=== PATIENT | female | born 1965 | race Caucasian/White ===

== ENCOUNTER 2016-10-01 05:02 | Inpatient (IN) | payer OTHER ==
[~2016-10-01] VITALS: Ht 162.6 cm; Wt 73.0 kg
[~2016-10-01 05:02] MED LIST: HYDR-3498 PO; VITAMIN B
[2016-10-01 05:23] VITALS: Ht 162.6 cm; Wt 73.0 kg
[2016-10-01] MEDS ORDERED: SOD CHLORIDE 0.9% 1,000 ML IV STA (07:02)
[2016-10-01] MEDS ORDERED: DIPHENHYDRAMINE 50 MG INJ IV ONE (07:30)
[2016-10-01 07:45] VITALS: TEMP 98.8
--- NOTE | 2016-10-01 08:13 | RADRPT ---
PROCEDURE: CT Abdomen and pelvis without contrast. CLINICAL INDICATION: Abdominal pain. TECHNIQUE: CT scan of the abdomen and pelvis was performed on a multi-detector high-resolution CT scanner. Contiguous axial images were obtained from the lung bases to the ischial tuberosities wit hout intravenous contrast. Coronal and sagittal reformatted images were also obtained. Images were reviewed on the PACS workstation. One or more of the following dose reduction techniques were used: - Automated exposure control. - Adjustment of the mA and/or kV according to patient size. - Use of iterative reconstruction technique. Exam CTD/vol = 14.20 mGy. Total exam DLP = 817.21 mGy-cm. COMPARISON: None. FINDINGS: Evaluation of the lung bases demonstrates no pleural or parenchymal disease. Abdomen: The liver is normal in size. There is no focal mass or dilatation of the biliary tree. T he gallbladder is not distended. The spleen, pancreas and bilateral adrenal glands are within deyanira l limits. Bilateral kidneys are normal in size with no contour deforming mass identified. There is no radiopaque renal or ureteral calculus identified. There is no hydronephrosis or hydroureter. T here is no retroperitoneal adenopathy. The abdominal aorta is of normal caliber. There is prior gastric surgery. There are anastomotic sutures within the small bowel within the lef t abdomen. There is mild thickening of the colon. There is no bowel obstruction or free air. A nor mal appendix is identified. There is colonic diverticulosis without evidence of diverticulitis. Th ere is no ascites. Pelvis: The bladder is unremarkable. The uterus and adnexa are within normal limits. There is no significant pelvic adenopathy or free fluid. Evaluation of the osseous structures demonstrates no suspicious lytic or blastic lesion. IMPRESSION: Mild thickening of the colon could be due to underdistension or represent nonspecific infectious/inf lammatory colitis. Colonic diverticulosis without evidence of diverticulitis. Prior gastric surgery. .Con Cardona MD, MD Date Time Electronically viewed and signed by .Con Cardona MD, MD on 10/01/2016 08:12 .T/
[2016-10-01 08:28] LABS: POTASSIUM 3.8 mmol/L (3.5-5.1)
[2016-10-01 08:30] LABS: ALBUMIN/GLOBULIN RATIO 1.37; BILIRUBIN,INDIRECT 0.8 mg/dl (0-1.1); BILIRUBIN,TOTAL 0.8 mg/dl (0.2-1.3); CREATININE 0.59 mg/dl (0.44-1.00); TOTAL PROTEIN 6.9 g/dl (6.1-8.1)
[2016-10-01 08:31] LABS: CALCIUM 9.7 mg/dl (8.4-10.2)
[2016-10-01 08:32] LABS: HEMATOCRIT 38.8 % (37.0-47.0); HEMOGLOBIN 12.5 g/dl (12.0-16.0); MEAN CORPUSCULAR HEMOGLOBIN 29.6 pg (29.0-33.0); MEAN CORPUSCULAR HGB CONC 32.2 g/dl (32.0-37.0); MEAN CORPUSCULAR VOLUME 91.9 fl (82.0-101.0); RED BLOOD COUNT 4.22 10^6/ul (4.20-5.40); RED CELL DISTRIBUTION WIDTH 15.2 % (11.5-14.5); WHITE BLOOD COUNT 11.6 10^3/ul (4.8-10.8)
[2016-10-01 08:33] LABS: MEAN PLATELET VOLUME 10.7 fl (7.4-10.4); PLATELET COUNT 138 10^3/UL (140-440)
[2016-10-01 09:55] LABS: LYMPHOCYTES # 1.9 10^3/ul (0.8-2.9); MONOCYTE # 0.6 10^3/ul (0.3-0.9); NEUTROPHIL # 7.8 10^3/ul (1.6-7.5)
[2016-10-01] MEDS ORDERED: LEVOFLOXACIN 750MG/D5W (PMX) 150 ML IVPB ONE (10:30)
[2016-10-01] MEDS ORDERED: metroNIDAZOLE 500 MG/NS (PMX) 100 ML IVPB ONE (10:30)
[2016-10-01] MEDS ORDERED: morphine 2 MG INJ IV ONE (10:30)
[2016-10-01] MEDS ORDERED: LORA-444 PO (10:40)
[2016-10-01] MEDS ORDERED: ZOF8 PO (10:40)
--- NOTE | 2016-10-01 11:24 | ERA ---
ER Documentation Chief Complaint Date/Time DATE: 10/01/16 TIME: 11:21 Chief Complaint vomiting/diarrhea after chemotherapy 5 days ago , weakness hx breast CA HPI 50-year-old female presents the emergency room complaining of nausea vomiting and diarrhea for approximately 5 days. Patient is approximately 5 days status post chemotherapy for breast cancer. Since that time, she has been having significant nonbloody watery diarrhea as well as nausea and vomiting. She states she has been unable to tolerate oral intake. She denies fevers or chills. Today, she began having significant left lower quadrant abdominal pain and came to the emergency department for evaluation. She currently reports the pain is localized and does not radiate. She describes it is mild to moderate. ROS All systems reviewed and are negative except as per history of present illness. Medications Home Meds Reported Medications Lorazepam* (Ativan*) 2 Mg Tablet, 2 MG PO Q4 Y for ANXIETY, #30 TAB 10/01/16 Ondansetron Hcl* (Zofran*) 8 Mg Tab, 8 MG PO Q6H Y for NAUSEA AND OR VOMITING, TAB 10/01/16 Discontinued Reported Medications [Vitamin B ] No Conflict Check, 1 MG WEEKLY 08/03/16 Discontinued Scripts Hydrocodone Bit-Acetaminophen (Hydrocodone Bit-APAP) 5-325MG Tablet, 1 TAB PO Q6H Y for PAIN LEVEL 6-10, #30 TAB Prov:INDIRA ANGULO 08/05/16 Allergies Allergies: Coded Allergies: Sulfa (Sulfonamide Antibiotics) (Verified Allergy, Mild, 10/01/16) adhesive tape (Verified Allergy, Unknown, RASH, 10/01/16) PMhx/Soc History of Surgery: Yes (TUMMY TUCK,GASTRIC BYPASS, RT BREAST MASTECTOMY) Anesthesia Reaction: No Hx Neurological Disorder: No Hx Respiratory Disorders: Yes (HX PNEUMONIA,BRONCHITIS) Hx Cardiac Disorders: No Hx Psychiatric Problems: No Hx Miscellaneous Medical Probl: Yes (DIVERTICULITIS, BREAST CA) Hx Alcohol Use: No (QUIT) Hx Substance Use: No Hx Tobacco Use: No Smoking Status: Former smoker FmHx Noncontributory for chief complaint Physical Exam Vitals Vital Signs Date Time Temp Pulse Resp B/P Pulse Ox O2 Delivery O2 Flow Rate FiO2 10/01/16 09:30 141 15 141/84 100 Room Air 10/01/16 07:45 98.8 65 18 134/89 100 Room Air 10/01/16 05:23 98.8 76 20 129/63 100 Physical Exam GENERAL: Patient is a chronically ill dehydrated female HEENT: Pupils equal, round, and reactive to light. EOMI. There is no scleral icterus. NECK: C-spine is soft and supple, there is no meningismus. There is no cervical lymphadenopathy. LUNGS: Clear to auscultation bilaterally. There are no rales, wheezes or rhonchi. HEART: Regular rate and rhythm, no murmurs, clicks, rubs or gallops. ABDOMEN: Left lower quadrant tenderness without rebound or guarding. No peritoneal signs EXTREMITIES: There is no peripheral cyanosis or edema. No focal swelling or erythema. NEURO: The patient moves all four extremities with 5/5 strength. Cranial nerves II - XII are intact. Normal gait. Alert and oriented SKIN: There is no apparent rash or petechiae. HEME/LYMPHATIC: There is no evidence of excessive bruising or lymphedema. PSYCHIATRIC: The patient does not appear anxious or depressed. Result Diagram: 10/01/16 0734 10/01/16 0734 Results 24 hrs Laboratory Tests Test 10/01/16 07:34 Alanine Aminotransferase (ALT/SGPT) 26IU/L Albumin 4.0g/dl Albumin/Globulin Ratio 1.37 Alkaline Phosphatase 132IU/L Anion Gap 15 Aspartate Amino Transf (AST/SGOT) 20IU/L Band Neutrophils % 12.0% Basophils # 10^3/ul Basophils % % Blood Urea Nitrogen 9mg/dl Calcium Level 9.7mg/dl Carbon Dioxide Level 28mmol/L Chloride Level 103mmol/L Creatinine 0.59mg/dl Differential Comment MANUAL DIFF Direct Bilirubin 0.00mg/dl Eosinophils # 10^3/ul Eosinophils % % Globulin 2.90g/dl Glucose Level 117mg/dl Hematocrit 38.8% Hemoglobin 12.5g/dl Indirect Bilirubin 0.8mg/dl Lipase 117U/L Lymphocytes # 1.910^3/ul Lymphocytes % 16.0% Mean Corpuscular Hemoglobin 29.6pg Mean Corpuscular Hemoglobin Concent 32.2g/dl Mean Corpuscular Volume 91.9fl Mean Platelet Volume 10.7fl Monocytes # 0.610^3/ul Monocytes % 5.0% Neutrophils # 7.810^3/ul Neutrophils % 67.0% Nucleated Red Blood Cells # 10^3/ul Nucleated Red Blood Cells % /100WBC Platelet Count 62923^3/UL Potassium Level 3.8mmol/L Red Blood Count 4.2210^6/ul Red Cell Distribution Width 15.2% Sodium Level 142mmol/L Total Bilirubin 0.8mg/dl Total Protein 6.9g/dl White Blood Count 11.610^3/ul Current Medications Medications (Trade) Dose Ordered Sig/Brenda Route PRN Reason Start Time Stop Time Status Last Admin Dose Admin Sodium Chloride (NS) 1,000 ml @ 1,000 mls/hr Q1H STAT IV 10/01/16 07:02 10/01/16 08:01 DC 10/01/16 07:29 Diphenhydramine HCl (Benadryl) 25 mg ONCE ONCE IV 10/01/16 07:30 10/01/16 07:31 DC 10/01/16 07:29 Morphine Sulfate 2 mg 2 mg ONCE ONCE IV 10/01/16 10:30 10/01/16 10:31 DC Levofloxacin/ Dextrose 150 ml @ 100 mls/hr ONCE ONCE IVPB 10/01/16 10:30 10/01/16 11:59 Metronidazole (Flagyl 500 Mg (Pmx)) 100 ml @ 100 mls/hr ONCE ONCE IVPB 10/01/16 10:30 10/01/16 11:29 Procedures/MDM Patient was taken to a room, seen and evaluated. Comfort measures were initiated. Diagnostic tests were ordered and reviewed. 3 LEAD RHYTHM STRIP: Normal sinus rhythm without ectopy RADIOLOGY: reviewed with the radiologist CONSULTATION: hospitalist was notified for admission as I did not feel she was appropriate for transfer with ongoing pain especially in light of her usual physicians in this hospital. REEVALUATION: Ongoing pain was treated and ongoing IV fluids were initiated MEDICAL DECISION MAKIN-year-old female with a history of breast cancer presents the emergency department with colitis status post chemotherapy. Given her significant immunocompromised state, she is obviously at high risk. IV antibiotics have been initiated for possible infectious colitis although this may be chemotherapy related. Patient has required IV fluids and will require ongoing IV fluids as she still appears dehydrated. She will be admitted to the hospital for further observation management and care. Departure Diagnosis: Primary Impression: Colitis Additional Impression: Breast cancer JASVIR WANG Oct 01, 2016 11:24
[2016-10-01 11:39] LABS: ADD UMIC NO; URINE BILIRUBIN (Dip) NEGATIVE (NEGATIVE); URINE BLOOD (Dip) NEGATIVE (NEGATIVE); URINE COLOR LT. YELLOW (YELLOW); URINE GLUCOSE (Dip) NEGATIVE (NEGATIVE); URINE KETONES (Dip) NEGATIVE (NEGATIVE); URINE LEUKOCYTE ESTERASE (Dip) NEGATIVE (NEGATIVE); URINE NITRITE (Dip) NEGATIVE (NEGATIVE); URINE TOTAL PROTEIN (Dip) NEGATIVE (NEGATIVE); URINE UROBILINOGEN (Dip) 0.2 E.U./dL (0.1-1.0)
[2016-10-01] MEDS ORDERED: DOCUSATE SODIUM 100 MG CAP PO PRN (14:30)
[2016-10-01] MEDS ORDERED: ACETAMINOPHEN 650 MG SUPP PR PRN (14:30)
[2016-10-01] MEDS ORDERED: NACL 0.9% 3 ML SYG IV SCH (14:30)
[2016-10-01] MEDS ORDERED: MAGNESIUM HYDROXIDE 30ML CUP PO PRN (14:30)
[2016-10-01] MEDS ORDERED: ACETAMINOPHEN 325 MG TAB PO PRN (14:30)
[2016-10-01] MEDS ORDERED: BISACODYL 10 MG SUPP PR PRN (14:30)
[2016-10-01] MEDS ORDERED: ONDANSETRON 4 MG INJ IV PRN (14:30)
[2016-10-01] MEDS ORDERED: morphine 2 MG INJ IV PRN (14:30)
[2016-10-01] MEDS ORDERED: HYDROCODONE/APAP (5/325) TAB PO PRN ×2 (14:30)
[2016-10-01] MEDS: D5W-0.45 NACL + KCL 20 MEQ 1,000 ML IV SCH ×2 (16:01→22:56)
[2016-10-01] MEDS: ONDANSETRON 4 MG INJ IV SCH ×2 (17:00→20:16)
[2016-10-01 17:08] VITALS: BP 137/89; PULSE 67; RESP 17
--- NOTE | 2016-10-01 17:40 | HP ---
Date/Time of Note Date/Time of Note DATE: 10/01/16 TIME: 17:28 Assessment/Plan VTE Prophylaxis VTE Prophylaxis Intervention: SCD's Lines/Catheters IV [facility]from [facility] Peripheral IV Assessment/Plan Chief Complaint/Hosp Course Assessment and plan 1. Abdominal pain. Patient did have CT scan of the abdomen showing mild thickening of the colon suspect for infectious/inflammatory colitis. Patient still with reported watery diarrhea. We'll check C. difficile stool. Continue on ciprofloxacin Flagyl for now. We'll continue with analgesics as needed 2. Right breast cancer. Patient followed up with oncologist as outpatient 3. Leukocytosis secondary to #1. Afebrile at present. Continue and about 4. Nausea secondary to #1. Continue with antiemetics Disposition and plan: Continue the above therapy for now. Follow up on C. difficile stool. Continue inpatient monitoring Admission process time is 40 minutes Discussed plan of care with Problems: HPI/ROS Admit Date/Time Admit Date/Time Oct 01, 2016 at 11:20 Hx of Present Illness This is a 50 note female with newly diagnosed right breast cancer in March 2016 , diverticulosis, IBS, hemorrhoidectomy, gastric bypass, came to [facility] due to reports of abdominal pain. Patient did report after she received her second round of chemotherapy on 09/26/2016 she started to experience increased abdominal pain. She of note was an [facility] due to similar abdominal pain on 03/25/2017 with reports of diverticulosis with suspect early-onset diverticulitis. Patient does not recall whether she was prescribed any antibiotics for this. Subsequently her pain started to get worse after thiS. She did report having some subjective fevers. She also had some reported nausea and vomiting nonbilious nonbloody with watery diarrhea. She stated that 2 days prior to this admission her pain got worse that she could not tolerate oral feeding and subsequently went to [facility] for further evaluation. Currently CT scan of abdomen did show suspect early colitis.. She was noted with some leukocytosis with white count at 11.6. BMP unremarkable at this time. Patient does remain afebrile. She still reports having some generalized abdominal pain but more so noted on right abdominal quadrants. She denies any chest pain or shortness of breath or headache or any other associated symptom. We will evaluate her for the aforementioned issues. ROS 12 point review of systems obtained and entirely negative except that mentioned in history of present illness PMH/Family/Social Past Medical History Medical/surgical history right breast cancer in March 2016, diverticulosis, IBS, hemorrhoidectomy, gastric bypass Family History Significant Family History: no pertinent family hx Social History Alcohol Use: other (previous drinker) Smoking Status: Former smoker Drug Use: none Exam/Review of Systems Vital Signs Vitals Vital Signs Date Time Temp Pulse Resp B/P Pulse Ox O2 Delivery O2 Flow Rate FiO2 10/01/16 17:08 98.3 67 17 137/89 100 Room Air Exam Exam General: No acute signs or symptoms of distress Eyes: pupils equal round, Anicteric sclera Neck: Supple nontender, no JVD Cardiac: S1, S2 auscultated, regular rhythm and rate Pulmonary: No coarse rhonchi or breathing auscultated GI: Tender upon palpation more on right abdominal quadrants Extremities: No edema bilateral lower extremities Skin: Clean dry and intact Neurologic: Alert to person place and time and situation Labs Result Diagram: 10/01/16 0734 10/01/16 0734 Medications Medications Current Medications Ciprofloxacin/ Dextrose 200 ml @ 200 mls/hr BID IVPB ; Start 10/01/16 at 21:00 Metronidazole 100 ml @ 100 mls/hr TID IVPB ; Start 10/01/16 at 21:00 Potassium Chloride/Dextrose/ Sod Cl (D5-1/2ns + KCl 20 Meq) 1,000 ml @ 100 mls/ hr Q10H IV Last administered on 10/01/16t 16:01; Admin Dose 100 MLS/HR; Start at 14:03 Acetaminophen (Tylenol Tab) 650 mg Q6H PRN PO PAIN LEVEL 1-3 OR FEVER; Start at 14:30 Acetaminophen (Tylenol Supp) 650 mg Q6H PRN [place] PAIN LEVEL 1-3 OR FEVER; Start 10/01/16 at 14:30 Acetaminophen/ Hydrocodone Bitart ([place] (5/325)) 1 tab Q6H PRN PO MODERATE PAIN LEVEL 4-6; Start 10/01/16 at 14:30 Acetaminophen/ Hydrocodone Bitart ([place] (5/325)) 2 tab Q6H PRN PO SEVERE PAIN LEVEL 7-10; Start 10/01/16 at 14:30 Morphine Sulfate (morphine) 2 mg Q4H PRN IV SEVERE PAIN LEVEL 7-10; Start at 14:30 Docusate Sodium (Colace) 100 mg Q12H PRN PO CONSTIPATION; Start 10/01/16 at 14: 30 Magnesium Hydroxide (Milk Of Mag) 30 ml DAILY PRN PO CONSTIPATION; Start at 14:30 Bisacodyl (Dulcolax Supp) 10 mg DAILY PRN [place] CONSTIPATION; Start 10/01/16 at 14: 30 Ondansetron HCl (Zofran Inj) 4 mg Q4 IV ; Start 10/01/16 at 17:00 MONE TORREZ Oct 01, 2016 17:39
[2016-10-01] MEDS ORDERED: ZOLPIDEM 5 MG TAB PO PRN (18:00)
[2016-10-01 20:10] VITALS: BP 130/77; RESP 18
[2016-10-01] MEDS: CIPROFLOXACIN 400MG/D5W 200 ML IVPB SCH (20:16)
[2016-10-01] MEDS: metroNIDAZOLE 500 MG/NS (PMX) 100 ML IVPB SCH (21:23)
[2016-10-01] MEDS: morphine 2 MG INJ IV PRN (21:24)
[2016-10-01] MEDS: LORAZEPAM 1 MG TAB PO PRN (22:56)
[2016-10-02] MEDS: ONDANSETRON 4 MG INJ IV SCH ×6 (00:25→21:23)
[2016-10-02] MEDS ORDERED: ZOLPIDEM 5 MG TAB PO ONE (01:30)
[2016-10-02] MEDS: morphine 2 MG INJ IV PRN ×5 (04:43→21:24)
[2016-10-02 06:04] LABS: ALBUMIN 3.3 g/dl (3.3-4.9)
[2016-10-02 06:05] LABS: POTASSIUM 3.9 mmol/L (3.5-5.1)
[2016-10-02 06:07] LABS: BILIRUBIN,INDIRECT 0.4 mg/dl (0-1.1); BILIRUBIN,TOTAL 0.4 mg/dl (0.2-1.3); CREATININE 0.55 mg/dl (0.44-1.00)
[2016-10-02 06:08] LABS: ALBUMIN/GLOBULIN RATIO 1.37; TOTAL PROTEIN 5.7 g/dl (6.1-8.1)
[2016-10-02 06:09] LABS: CALCIUM 8.8 mg/dl (8.4-10.2); CHOL/HDL RATIO 2.2 RATIO; MAGNESIUM 1.6 mg/dl (1.7-2.5)
[2016-10-02 06:24] LABS: T3 UPTAKE 39.5 % (23.5-40.5)
[2016-10-02 06:40] LABS: THYROID STIMULATING HORMONE 3.07 MIU/L (0.465-4.680)
[2016-10-02 07:57] VITALS: BP 112/74; RESP 16
[2016-10-02] MEDS: metroNIDAZOLE 500 MG/NS (PMX) 100 ML IVPB SCH ×3 (08:47→21:26)
[2016-10-02] MEDS: CIPROFLOXACIN 400MG/D5W 200 ML IVPB SCH ×2 (08:47→20:12)
[2016-10-02] MEDS: D5W-0.45 NACL + KCL 20 MEQ 1,000 ML IV SCH ×2 (10:03→17:19)
--- NOTE | 2016-10-02 13:00 | PN ---
Date/Time of Note Date/Time of Note DATE: 10/02/16 TIME: 12:55 Assessment/Plan VTE Prophylaxis VTE Prophylaxis Intervention: SCD's Lines/Catheters IV Catheter Type (from Nrs): Peripheral IV Assessment/Plan Chief Complaint/Hosp Course Assessment and plan 1. Abdominal pain. Patient did have CT scan of the abdomen showing mild thickening of the colon suspect for infectious/inflammatory colitis. Patient still with reported watery diarrhea. C. difficile stool negative.. Continue on ciprofloxacin Flagyl for now. We'll continue with analgesics as needed. We'll get gastric chief chemist follow 2. Right breast cancer. Patient followed up with oncologist as outpatient 3. Leukocytosis secondary to #1. Afebrile at present. Continue and about 4. Nausea secondary to #1. Continue with antiemetics Disposition and plan: Still with abdominal pain. We'll get director product safety follow. Discussed plan of care with Problems: Subjective 24 Hr Interval Summary Free Text/Dictation Still with some reports of abdominal discomfort. Exam/Review of Systems Vital Signs Vitals Vital Signs Date Time Temp Pulse Resp B/P Pulse Ox O2 Delivery O2 Flow Rate FiO2 10/02/16 07:57 98.1 74 16 112/74 98 10/01/16 17:08 Room Air Intake and Output 10/01/16 10/01/16 10/02/16 15:00 23:00 07:00 Intake Total 1800 ml Output Total 1200 ml Balance 600 ml Exam General: No acute signs or symptoms of distress Eyes: pupils equal round, Anicteric sclera Neck: Supple nontender, no JVD Cardiac: S1, S2 auscultated, regular rhythm and rate Pulmonary: No coarse rhonchi or breathing auscultated GI: Tender upon palpation Extremities: No edema bilateral lower extremities Skin: Clean dry and intact Neurologic: Alert to person place and time and situation Results Result Diagram: 10/01/16 0734 10/02/16 0450 Results 24 hrs Laboratory Tests Test 10/02/16 04:50 Alanine Aminotransferase (ALT/SGPT) 21 Albumin 3.3 Albumin/Globulin Ratio 1.37 Alkaline Phosphatase 93 Anion Gap 16 Aspartate Amino Transf (AST/SGOT) 18 Blood Urea Nitrogen 7 Calcium Level 8.8 Carbon Dioxide Level 22 Chloride Level 108 Cholesterol Level 172 Cholesterol/HDL Ratio 2.2 Creatinine 0.55 Direct Bilirubin 0.00 Free Thyroxine Index 2.49 Globulin 2.40 Glucose Level 103 HDL Cholesterol 75 Hemoglobin A1c 5.4 Indirect Bilirubin 0.4 LDL Cholesterol, Calculated 74 Magnesium Level 1.6 L Phosphorus Level 4.0 Potassium Level 3.9 Sodium Level 142 Thyroid Stimulating Hormone (TSH) 3.070 Thyroxine (T4) 6.3 Total Bilirubin 0.4 Total Protein 5.7 #L Triglycerides Level 115 Triiodothyronine (T3) Uptake 39.5 Medications Medications Current Medications Ciprofloxacin/ Dextrose 200 ml @ 200 mls/hr BID IVPB Last administered on 08:47; Admin Dose 200 MLS/HR; Start 10/01/16 at 21:00 Metronidazole 100 ml @ 100 mls/hr TID IVPB Last administered on 10/02/16 08:47 ; Admin Dose 100 MLS/HR; Start 10/01/16 at 21:00 Potassium Chloride/Dextrose/ Sod Cl (D5-1/2ns + KCl 20 Meq) 1,000 ml @ 100 mls/ hr Q10H IV Last administered on 10/01/16 22:56; Admin Dose 100 MLS/HR; Start at 14:03 Acetaminophen (Tylenol Tab) 650 mg Q6H PRN PO PAIN LEVEL 1-3 OR FEVER; Start at 14:30 Acetaminophen (Tylenol Supp) 650 mg Q6H PRN [place] PAIN LEVEL 1-3 OR FEVER; Start 10/01/16 at 14:30 Acetaminophen/ Hydrocodone Bitart ([place] (5/325)) 1 tab Q6H PRN PO MODERATE PAIN LEVEL 4-6; Start 10/01/16 at 14:30 Acetaminophen/ Hydrocodone Bitart ([place] (5/325)) 2 tab Q6H PRN PO SEVERE PAIN LEVEL 7-10; Start 10/01/16 at 14:30 Docusate Sodium (Colace) 100 mg Q12H PRN PO CONSTIPATION; Start 10/01/16 at 14: 30 Magnesium Hydroxide (Milk Of Mag) 30 ml DAILY PRN PO CONSTIPATION; Start at 14:30 Bisacodyl (Dulcolax Supp) 10 mg DAILY PRN [place] CONSTIPATION; Start 10/01/16 at 14: 30 Ondansetron HCl (Zofran Inj) 4 mg Q4 IV Last administered on 10/02/16 08:45; Admin Dose 4 MG; Start 10/01/16 at 17:00 Morphine Sulfate (morphine) 1 mg Q4H PRN IV SEVERE PAIN LEVEL 7-10 Last administered on 10/02/16 08:44; Admin Dose 1 MG; Start 10/01/16 at 18:30 Zolpidem Tartrate (Ambien) 5 mg HS PRN PO INSOMNIA Last administered on 21:23; Admin Dose 5 MG; Start 10/01/16 at 18:00 Lorazepam (Ativan) 1 mg Q6H PRN PO ANXIETY Last administered on 10/01/16 22:56 ; Admin Dose 1 MG; Start 10/01/16 at 22:30 MONE TORREZ Oct 02, 2016 13:00
--- NOTE | 2016-10-02 18:30 | CONS ---
Date/Time of Note Date/Time of Note DATE: 10/02/16 TIME: 18:19 Assessment/Plan Assessment/Plan Additional Assessment/Plan Abdominal pain Nausea Vomiting * Controlled with Zofran * Evaluate secondary to PUD versus chemotherapy treatment * Stool OB * PPI therapy Diarrhea * C. difficile stool negative * History of IBS and diverticulosis * Currently on antibiotic treatment * May require colonoscopy as inpatient * CT abdomen: mild thickening of the colon suspect for infectious/inflammatory colitis Right breast cancer * Partial right breast vasectomy mastectomy with lymph node involvement * Completed 2 rounds of chemotherapy * Patient followed up with oncologist as outpatient Leukocytosis * Continue antibiotic treatment Gastric dumping syndrome * Per patient secondary to gastric bypass * Patient requires weekly B12 shot Further recommendations depend on clinical course Patient seen in collaboration with Dr. Barr Consultation Date/Type/Reason Admit Date/Time Oct 01, 2016 at 11:20 Hx of Present Illness 50 YO F with history of breast CA May. Pt with partial masectomy on R side with lymph node removal. Pt completed two of the recommend 4 rounds of chemotherapy. Pt states her last round was on Monday and states that was the last time she slept as well. Pt has history of IBS w/diarrhea and diverticulosis for several years.Pt had colonoscopy and noted to have diverticulosis.Pt reports mother diverticulosis and IBS as well. Pt states that she normally has diarrhea but with this last round of chemotherya it was worse and up to 8 episodes per day and that the food was not well digested. She denies hematochezia. She also reports nausea and vomiting to the point she could on tolerate baby food. At bedside, she reports being able tolerate a regular meal with Zofran and antibiotiic. Pt denies sick contacts. Pt has surgical hx of [place] X Y gastric bypass in 2002 and reports 120lbs loss and tummy tuck in 2007. Past Medical History Medical History: cancer (Breast cancer), diverticulitis, other (IBS) Past Surgical History Past Surgical Hx: other (Gastric bypass and tummy tuck) Social History Alcohol Use: none (previous drinker) Smoking Status: Former smoker Drug Use: none Exam/Review of Systems Vital Signs Vitals Vital Signs Date Time Temp Pulse Resp B/P Pulse Ox O2 Delivery O2 Flow Rate FiO2 10/02/16 07:57 98.1 74 16 112/74 98 10/01/16 17:08 Room Air Intake and Output 10/01/16 10/01/16 10/02/16 15:00 23:00 07:00 Intake Total 1800 ml Output Total 1200 ml Balance 600 ml Exam Constitutional: alert, oriented, well developed Psych: nl mood/affect Head: normocephalic Eyes: EOMI, nl conjunctiva, nl lids, nl sclera ENMT: mucosa pink and moist, nl external ears & nose, nl lips & teeth, nl nasal mucosa & septum Respiratory: normal air movement Cardiovascular: regular rate and rhythm Gastrointestinal: soft, tender (Left upper quadrant, and lower abdomen) Results Result Diagram: 10/01/16 0734 10/02/16 0450 Results 24 hrs Laboratory Tests Test 10/02/16 04:50 Alanine Aminotransferase (ALT/SGPT) 21 Albumin 3.3 Albumin/Globulin Ratio 1.37 Alkaline Phosphatase 93 Anion Gap 16 Aspartate Amino Transf (AST/SGOT) 18 Blood Urea Nitrogen 7 Calcium Level 8.8 Carbon Dioxide Level 22 Chloride Level 108 Cholesterol Level 172 Cholesterol/HDL Ratio 2.2 Creatinine 0.55 Direct Bilirubin 0.00 Free Thyroxine Index 2.49 Globulin 2.40 Glucose Level 103 HDL Cholesterol 75 Hemoglobin A1c 5.4 Indirect Bilirubin 0.4 LDL Cholesterol, Calculated 74 Magnesium Level 1.6 L Phosphorus Level 4.0 Potassium Level 3.9 Sodium Level 142 Thyroid Stimulating Hormone (TSH) 3.070 Thyroxine (T4) 6.3 Total Bilirubin 0.4 Total Protein 5.7 #L Triglycerides Level 115 Triiodothyronine (T3) Uptake 39.5 Medications Medications Current Medications Ciprofloxacin/ Dextrose 200 ml @ 200 mls/hr BID IVPB Last administered on 08:47; Admin Dose 200 MLS/HR; Start 10/01/16 at 21:00 Metronidazole 100 ml @ 100 mls/hr TID IVPB Last administered on 10/02/16 13:01 ; Admin Dose 100 MLS/HR; Start 10/01/16 at 21:00 Potassium Chloride/Dextrose/ Sod Cl (D5-1/2ns + KCl 20 Meq) 1,000 ml @ 100 mls/ hr Q10H IV Last administered on 10/02/16 17:19; Admin Dose 100 MLS/HR; Start at 14:03 Acetaminophen (Tylenol Tab) 650 mg Q6H PRN PO PAIN LEVEL 1-3 OR FEVER; Start at 14:30 Acetaminophen (Tylenol Supp) 650 mg Q6H PRN [place] PAIN LEVEL 1-3 OR FEVER; Start 10/01/16 at 14:30 Acetaminophen/ Hydrocodone Bitart ([place] (5/325)) 1 tab Q6H PRN PO MODERATE PAIN LEVEL 4-6; Start 10/01/16 at 14:30 Acetaminophen/ Hydrocodone Bitart ([place] (5/325)) 2 tab Q6H PRN PO SEVERE PAIN LEVEL 7-10; Start 10/01/16 at 14:30 Docusate Sodium (Colace) 100 mg Q12H PRN PO CONSTIPATION; Start 10/01/16 at 14: 30 Magnesium Hydroxide (Milk Of Mag) 30 ml DAILY PRN PO CONSTIPATION; Start at 14:30 Bisacodyl (Dulcolax Supp) 10 mg DAILY PRN [place] CONSTIPATION; Start 10/01/16 at 14: 30 Ondansetron HCl (Zofran Inj) 4 mg Q4 IV Last administered on 10/02/16 17:10; Admin Dose 4 MG; Start 10/01/16 at 17:00 Morphine Sulfate (morphine) 1 mg Q4H PRN IV SEVERE PAIN LEVEL 7-10 Last administered on 10/02/16 17:10; Admin Dose 1 MG; Start 10/01/16 at 18:30 Lorazepam (Ativan) 1 mg Q6H PRN PO ANXIETY Last administered on 10/01/16 22:56 ; Admin Dose 1 MG; Start 10/01/16 at 22:30 Zolpidem Tartrate (Ambien) 10 mg HS PRN PO INSOMNIA; Start 10/02/16 at 15:30 WAGNER TO Oct 02, 2016 18:29
[2016-10-02 20:01] VITALS: BP 111/57; RESP 18
[2016-10-02] MEDS ORDERED: CYANOCOBALAMIN 1000 MCG INJ IM SCH (20:30)
[2016-10-02] MEDS: ZOLPIDEM 5 MG TAB PO PRN (22:23)
[2016-10-02] MEDS: LORAZEPAM 1 MG TAB PO PRN (23:38)
[2016-10-03] MEDS: ONDANSETRON 4 MG INJ IV SCH ×6 (02:03→21:17)
[2016-10-03] MEDS: morphine 2 MG INJ IV PRN ×5 (02:05→21:18)
[2016-10-03] MEDS: D5W-0.45 NACL + KCL 20 MEQ 1,000 ML IV SCH ×3 (04:38→17:18)
[2016-10-03 05:32] LABS: POTASSIUM 3.9 mmol/L (3.5-5.1)
[2016-10-03 05:33] LABS: BASOPHILS % 0.4 % (0.0-2.0); EOSINOPHILS # 0.1 10^3/ul (0.0-0.5); EOSINOPHILS % 1.2 % (0.0-7.0); HEMOGLOBIN 11.1 g/dl (12.0-16.0); LYMPHOCYTES # 2.1 10^3/ul (0.8-2.9); LYMPHOCYTES % 28.2 % (15.0-51.0); MEAN CORPUSCULAR HEMOGLOBIN 30.4 pg (29.0-33.0); MEAN CORPUSCULAR HGB CONC 33.5 g/dl (32.0-37.0); MEAN CORPUSCULAR VOLUME 90.7 fl (82.0-101.0); MEAN PLATELET VOLUME 8.3 fl (7.4-10.4); MONOCYTE # 0.8 10^3/ul (0.3-0.9); MONOCYTES % 10.5 % (0.0-11.0); NEUTROPHIL # 4.4 10^3/ul (1.6-7.5); NEUTROPHILS % 59.7 % (39.0-77.0); PLATELET COUNT 175 10^3/UL (140-440); RED BLOOD COUNT 3.64 10^6/ul (4.20-5.40); RED CELL DISTRIBUTION WIDTH 15.4 % (11.5-14.5); UNCORRECTED WBC 7.4 10^3/ul (4.8-10.8); WHITE BLOOD COUNT 7.4 10^3/ul (4.8-10.8)
[2016-10-03 05:35] LABS: CALCIUM 8.8 mg/dl (8.4-10.2); CREATININE 0.6 mg/dl (0.44-1.00)
[2016-10-03 05:43] LABS: CONDITION 1; LH ANALYZER COMMENTS 1
[2016-10-03] MEDS: CIPROFLOXACIN 400MG/D5W 200 ML IVPB SCH ×2 (08:20→20:41)
[2016-10-03] MEDS: metroNIDAZOLE 500 MG/NS (PMX) 100 ML IVPB SCH ×3 (08:20→22:16)
[2016-10-03 08:26] VITALS: BP 119/69; RESP 18
--- NOTE | 2016-10-03 09:57 | PN ---
DATE: 10/03/2016 Time of evaluation: 0900 AM. SUBJECTIVE DATA: Complains of some nausea. Abdominal pain well controlled. Having no solid bowel movements. OBJECTIVE DATA: VITAL SIGNS: Temperature 97.8, pulse rate 78, respiratory rate 18, blood pressure 119/69, oxygen saturation 97% on room air. GENERAL: This is a well-built, well-nourished female lying in bed in no apparent distress. HEENT: Head normocephalic and atraumatic. Alopecia. Eyes: Anicteric sclerae. Conjunctivae clear. ENT: Nasal septum is midline. Oral mucosa is dry. NECK: Supple. No JVD noticed. RESPIRATORY: Bilaterally clear to auscultation. No adventitious breath sounds. No use of accessory muscles of respiration. CARDIAC: Regular rate and rhythm. No murmurs. ABDOMEN: Soft, nontender and nondistended. Bowel sounds positive in all 4 quadrants. GENITOURINARY: Deferred. EXTREMITIES: No cyanosis, no clubbing, no edema. Peripheral pulses are palpable. NEUROLOGIC: The patient is awake, alert and oriented. Cranial nerves are grossly intact. LABORATORY AND DIAGNOSTIC DATA: WBC 7.4, hemoglobin 11.1, hematocrit 33.0, platelet count 175. Sodium 143, potassium 3.9, chloride 111, carbon dioxide 25 , anion gap 12, BUN 5, creatinine 0.60, glucose 97, calcium 8.8. ASSESSMENT AND PLAN: 1. Abdominal pain. CT scan of the abdomen and pelvis showing mild thickening of the colon. Possible nonspecific infectious/inflammatory colitis. The patient on empiric antibiotics. The patient's symptomatology has been improving. Stool for Clostridium diff negative. Gastroenterology following. 3. Right breast cancer. The patient being followed by outpatient oncologist. 4. Diarrhea. Stool for Clostridium difficile negative. Most probably secondary to underlying colitis. Gastroenterology following. 5. Gastric dumping syndrome. Status post gastric bypass. Continue vitamin B12 shot. 6. Fluid, electrolytes and nutrition. Continue regular diet as tolerated. 7. Deep venous thrombosis prophylaxis. Bilateral sequential compression devices. 8. Gastrointestinal prophylaxis. Proton pump inhibitors. 9. Plan. Continue antibiotics. Await further recommendations from core placer. The case discussed with Dr. Roche. RONNIE ROCHE MD, AM/JEZ Conf#: [id number] [facility]#: [id number] MTDD
[2016-10-03] MEDS: PANTOPRAZOLE (EC) 40 MG TAB PO SCH (17:18)
[2016-10-03 20:02] VITALS: BP 129/69; RESP 20
--- NOTE | 2016-10-03 20:03 | PN ---
Date/Time of Note Date/Time of Note DATE: 10/03/16 TIME: 19:59 Assessment/Plan VTE Prophylaxis VTE Prophylaxis Intervention: SCD's Lines/Catheters IV Catheter Type (from Nrs): Peripheral IV Assessment/Plan Assessment/Plan Assessment: Abdominal pain, Nausea,Vomiting * Post recent chemotherapy Diarrhea/chronic IBS-D * C. difficile stool negative * History of IBS and diverticulosis * Currently on antibiotic treatment Right breast cancer * Partial right breast mastectomy with lymph node involvement * Completed 2 rounds of chemotherapy * Patient followed up with oncologist as outpatient Leukocytosis * Continue antibiotic treatment Gastric dumping syndrome * Per patient secondary to gastric bypass * Patient requires weekly B12 shot Further recommendations depend on clinical course Plan: * Continue present regimen * Deferred colonoscopy to worsening of diarrhea or addition of alarming signs such as bleeding Subjective 24 Hr Interval Summary Free Text/Dictation Course reviewed with nursing staff Patient reports less abdominal pain, nausea and no vomiting Diarrhea appears to be subsiding as well no overt bleeding Exam/Review of Systems Vital Signs Vitals Vital Signs Date Time Temp Pulse Resp B/P Pulse Ox O2 Delivery O2 Flow Rate FiO2 10/03/16 08:26 97.8 78 18 119/69 97 10/01/16 17:08 Room Air Intake and Output 10/02/16 10/02/16 10/03/16 15:00 23:00 07:00 Intake Total 400 ml 1700 ml 2100 ml Output Total 1200 ml 650 ml Balance 400 ml 500 ml 1450 ml Exam Constitutional: alert, oriented, well developed Head: atraumatic, normocephalic Neck: non-tender, supple Respiratory: clear to auscultation, normal air movement Cardiovascular: nl pulses, regular rate and rhythm Gastrointestinal: nl liver, spleen, non-tender, soft Results Result Diagram: 10/03/16 0440 10/03/16 0440 Results 24 hrs Laboratory Tests Test 10/03/16 04:40 Anion Gap 12 Basophils # 0.0 Basophils % 0.4 Blood Morphology Comment Blood Urea Nitrogen 5 L Calcium Level 8.8 Carbon Dioxide Level 24 Chloride Level 111 H Creatinine 0.60 Eosinophils # 0.1 Eosinophils % 1.2 Glucose Level 97 Hematocrit 33.0 L Hemoglobin 11.1 L Lymphocytes # 2.1 Lymphocytes % 28.2 Mean Corpuscular Hemoglobin 30.4 Mean Corpuscular Hemoglobin Concent 33.5 Mean Corpuscular Volume 90.7 Mean Platelet Volume 8.3 # Monocytes # 0.8 Monocytes % 10.5 Neutrophils # 4.4 Neutrophils % 59.7 Nucleated Red Blood Cells # 0.0 Nucleated Red Blood Cells % 0.0 Platelet Count 175 # Potassium Level 3.9 Red Blood Count 3.64 L Red Cell Distribution Width 15.4 H Sodium Level 143 White Blood Count 7.4 # Medications Medications Current Medications Ciprofloxacin/ Dextrose 200 ml @ 200 mls/hr BID IVPB Last administered on 08:20; Admin Dose 200 MLS/HR; Start 10/01/16 at 21:00 Metronidazole 100 ml @ 100 mls/hr TID IVPB Last administered on 10/03/16 12:27 ; Admin Dose 100 MLS/HR; Start 10/01/16 at 21:00 Potassium Chloride/Dextrose/ Sod Cl (D5-1/2ns + KCl 20 Meq) 1,000 ml @ 100 mls/ hr Q10H IV Last administered on 10/03/16 17:18; Admin Dose 100 MLS/HR; Start at 14:03 Acetaminophen (Tylenol Tab) 650 mg Q6H PRN PO PAIN LEVEL 1-3 OR FEVER; Start at 14:30 Acetaminophen (Tylenol Supp) 650 mg Q6H PRN [place] PAIN LEVEL 1-3 OR FEVER; Start 10/01/16 at 14:30 Acetaminophen/ Hydrocodone Bitart ([place] (5/325)) 1 tab Q6H PRN PO MODERATE PAIN LEVEL 4-6; Start 10/01/16 at 14:30 Acetaminophen/ Hydrocodone Bitart ([place] (5/325)) 2 tab Q6H PRN PO SEVERE PAIN LEVEL 7-10; Start 10/01/16 at 14:30 Docusate Sodium (Colace) 100 mg Q12H PRN PO CONSTIPATION; Start 10/01/16 at 14: 30 Magnesium Hydroxide (Milk Of Mag) 30 ml DAILY PRN PO CONSTIPATION; Start at 14:30 Bisacodyl (Dulcolax Supp) 10 mg DAILY PRN [place] CONSTIPATION; Start 10/01/16 at 14: 30 Ondansetron HCl (Zofran Inj) 4 mg Q4 IV Last administered on 10/03/16 17:13; Admin Dose 4 MG; Start 10/01/16 at 17:00 Morphine Sulfate (morphine) 1 mg Q4H PRN IV SEVERE PAIN LEVEL 7-10 Last administered on 10/03/16 17:13; Admin Dose 1 MG; Start 10/01/16 at 18:30 Lorazepam (Ativan) 1 mg Q6H PRN PO ANXIETY Last administered on 10/02/16 23:38 ; Admin Dose 1 MG; Start 10/01/16 at 22:30 Zolpidem Tartrate (Ambien) 10 mg HS PRN PO INSOMNIA Last administered on 22:23; Admin Dose 10 MG; Start 10/02/16 at 15:30 Cyanocobalamin (Vitamin B12 Inj) 1,000 mcg Q7D IM Last administered on 21:27; Admin Dose 1,000 MCG; Start 10/02/16 at 20:30 Pantoprazole (Protonix Tab) 40 mg BID@06,18 PO Last administered on 10/03/16 17 :18; Admin Dose 40 MG; Start 10/03/16 at 18:00 SRI BOATENG MD Oct 03, 2016 20:03
[2016-10-03] MEDS: ZOLPIDEM 5 MG TAB PO PRN (22:48)
[2016-10-04] MEDS: ONDANSETRON 4 MG INJ IV SCH ×5 (01:00→17:00)
[2016-10-04] MEDS: D5W-0.45 NACL + KCL 20 MEQ 1,000 ML IV SCH (05:09)
[2016-10-04] MEDS: PANTOPRAZOLE (EC) 40 MG TAB PO SCH (05:09)
[2016-10-04] MEDS: morphine 2 MG INJ IV PRN ×3 (05:12→13:14)
[2016-10-04 06:01] LABS: BASOPHILS % 0.5 % (0.0-2.0); EOSINOPHILS # 0.1 10^3/ul (0.0-0.5); EOSINOPHILS % 1.2 % (0.0-7.0); HEMATOCRIT 34.6 % (37.0-47.0); HEMOGLOBIN 11.7 g/dl (12.0-16.0); LYMPHOCYTES # 2.4 10^3/ul (0.8-2.9); LYMPHOCYTES % 28.1 % (15.0-51.0); MEAN CORPUSCULAR HEMOGLOBIN 30.5 pg (29.0-33.0); MEAN CORPUSCULAR HGB CONC 33.9 g/dl (32.0-37.0); MEAN CORPUSCULAR VOLUME 90.1 fl (82.0-101.0); MONOCYTE # 1.3 10^3/ul (0.3-0.9); MONOCYTES % 15.6 % (0.0-11.0); NEUTROPHIL # 4.7 10^3/ul (1.6-7.5); NEUTROPHILS % 54.6 % (39.0-77.0); PLATELET COUNT 215 10^3/UL (140-440); RED BLOOD COUNT 3.84 10^6/ul (4.20-5.40); RED CELL DISTRIBUTION WIDTH 15.9 % (11.5-14.5); UNCORRECTED WBC 8.6 10^3/ul (4.8-10.8); WHITE BLOOD COUNT 8.6 10^3/ul (4.8-10.8)
[2016-10-04 06:06] LABS: MAGNESIUM 1.8 mg/dl (1.7-2.5); PHOSPHORUS 4.9 mg/dl (2.5-4.9)
[2016-10-04 06:44] LABS: CALCIUM 9.3 mg/dl (8.4-10.2); CREATININE 0.62 mg/dl (0.44-1.00)
[2016-10-04 07:08] LABS: CONDITION 1; LH ANALYZER COMMENTS 1
--- NOTE | 2016-10-04 08:36 | PN ---
Date/Time of Note Date/Time of Note DATE: 10/04/16 TIME: 08:35 Assessment/Plan VTE Prophylaxis VTE Prophylaxis Intervention: SCD's Lines/Catheters [facility] (from [facility]): Peripheral IV Assessment/Plan Chief Complaint/Hosp Course 1. Abdominal pain. CT scan of the abdomen and pelvis showing mild thickening of the colon. Possible nonspecific infectious/inflammatory colitis. The patient on empiric antibiotics. The patient's symptomatology has been improving. Stool for Clostridium diff negative. Gastroenterology following. 3. Right breast cancer. The patient being followed by outpatient oncologist. 4. Diarrhea. Stool for Clostridium difficile negative. Most probably secondary to underlying colitis. Gastroenterology following. 5. Gastric dumping syndrome. Status post gastric bypass. Continue vitamin B12 shot. 6. Fluid, electrolytes and nutrition. Continue regular diet as tolerated. 7. Deep venous thrombosis prophylaxis. Bilateral sequential compression devices. 8. Gastrointestinal prophylaxis. Proton pump inhibitors. 9. Plan. Continue antibiotics. Await further recommendations from desktop publishing specialist. We will start the patient on probiotics. The case was discussed with Dr. Roche. Problems: Subjective 24 Hr Interval Summary Free Text/Dictation The patient continues to have diarrhea. Denies any abdominal pain. Exam/Review of Systems Vital Signs Vitals Vital Signs Date Time Temp Pulse Resp B/P Pulse Ox O2 Delivery O2 Flow Rate FiO2 10/03/16 20:02 98.2 72 20 129/69 98 10/01/16 17:08 Room Air Intake and Output 10/03/16 10/03/16 10/04/16 15:00 23:00 07:00 Intake Total 400 ml 2440 ml 1650 ml Balance 400 ml 2440 ml 1650 ml Exam GENERAL: This is a well-built, well-nourished female lying in bed in no apparent distress. HEENT: Head normocephalic and atraumatic. Alopecia. Eyes: Anicteric sclerae. Conjunctivae clear. ENT: Nasal septum is midline. Oral mucosa is dry. NECK: Supple. No JVD noticed. RESPIRATORY: Bilaterally clear to auscultation. No adventitious breath sounds. No use of accessory muscles of respiration. CARDIAC: Regular rate and rhythm. No murmurs. ABDOMEN: Soft, nontender and nondistended. Bowel sounds positive in all 4 quadrants. GENITOURINARY: Deferred. EXTREMITIES: No cyanosis, no clubbing, no edema. Peripheral pulses are palpable. NEUROLOGIC: The patient is awake, alert and oriented. Cranial nerves are grossly intact. Results Result Diagram: 10/04/16 0500 10/04/16 0500 Results 24 hrs Laboratory Tests Test 10/04/16 05:00 Anion Gap 15 Basophils # 0.0 Basophils % 0.5 Blood Morphology Comment Blood Urea Nitrogen 7 Calcium Level 9.3 Carbon Dioxide Level 23 Chloride Level 110 Creatinine 0.62 Eosinophils # 0.1 Eosinophils % 1.2 Glucose Level 92 Hematocrit 34.6 L Hemoglobin 11.7 L Lymphocytes # 2.4 Lymphocytes % 28.1 Magnesium Level 1.8 Mean Corpuscular Hemoglobin 30.5 Mean Corpuscular Hemoglobin Concent 33.9 Mean Corpuscular Volume 90.1 Mean Platelet Volume 8.0 Monocytes # 1.3 H Monocytes % 15.6 H Neutrophils # 4.7 Neutrophils % 54.6 Nucleated Red Blood Cells # 0.0 Nucleated Red Blood Cells % 0.0 Phosphorus Level 4.9 Platelet Count 215 # Potassium Level 4.0 Red Blood Count 3.84 L Red Cell Distribution Width 15.9 H Sodium Level 144 White Blood Count 8.6 Medications Medications Current Medications Ciprofloxacin/ Dextrose 200 ml @ 200 mls/hr BID IVPB Last administered on 20:41; Admin Dose 200 MLS/HR; Start 10/01/16 at 21:00 Metronidazole 100 ml @ 100 mls/hr TID IVPB Last administered on 10/03/16 22:16 ; Admin Dose 100 MLS/HR; Start 10/01/16 at 21:00 Potassium Chloride/Dextrose/ Sod Cl (D5-1/2ns + KCl 20 Meq) 1,000 ml @ 100 mls/ hr Q10H IV Last administered on 10/04/16 05:09; Admin Dose 100 MLS/HR; Start at 14:03 Acetaminophen (Tylenol Tab) 650 mg Q6H PRN PO PAIN LEVEL 1-3 OR FEVER; Start at 14:30 Acetaminophen (Tylenol Supp) 650 mg Q6H PRN [place] PAIN LEVEL 1-3 OR FEVER; Start 10/01/16 at 14:30 Acetaminophen/ Hydrocodone Bitart ([place] (5/325)) 1 tab Q6H PRN PO MODERATE PAIN LEVEL 4-6; Start 10/01/16 at 14:30 Acetaminophen/ Hydrocodone Bitart ([place] (5/325)) 2 tab Q6H PRN PO SEVERE PAIN LEVEL 7-10; Start 10/01/16 at 14:30 Docusate Sodium (Colace) 100 mg Q12H PRN PO CONSTIPATION; Start 10/01/16 at 14: 30 Magnesium Hydroxide (Milk Of Mag) 30 ml DAILY PRN PO CONSTIPATION; Start at 14:30 Bisacodyl (Dulcolax Supp) 10 mg DAILY PRN [place] CONSTIPATION; Start 10/01/16 at 14: 30 Ondansetron HCl (Zofran Inj) 4 mg Q4 IV Last administered on 10/04/16 05:12; Admin Dose 4 MG; Start 10/01/16 at 17:00 Morphine Sulfate (morphine) 1 mg Q4H PRN IV SEVERE PAIN LEVEL 7-10 Last administered on 10/04/16 05:12; Admin Dose 1 MG; Start 10/01/16 at 18:30 Lorazepam (Ativan) 1 mg Q6H PRN PO ANXIETY Last administered on 10/02/16 23:38 ; Admin Dose 1 MG; Start 10/01/16 at 22:30 Zolpidem Tartrate (Ambien) 10 mg HS PRN PO INSOMNIA Last administered on 22:48; Admin Dose 10 MG; Start 10/02/16 at 15:30 Cyanocobalamin (Vitamin B12 Inj) 1,000 mcg Q7D IM Last administered on 21:27; Admin Dose 1,000 MCG; Start 10/02/16 at 20:30 Pantoprazole (Protonix Tab) 40 mg BID@,18 PO Last administered on 10/04/16 05 :09; Admin Dose 40 MG; Start 10/03/16 at 18:00 RONNIE KIM NP Oct 04, 2016 08:36
[2016-10-04] MEDS: metroNIDAZOLE 500 MG/NS (PMX) 100 ML IVPB SCH ×2 (08:40→13:13)
[2016-10-04] MEDS: CIPROFLOXACIN 400MG/D5W 200 ML IVPB SCH (08:40)
[2016-10-04 08:58] VITALS: BP 134/75; RESP 18
[2016-10-04] MEDS ORDERED: SACCHAROMYCES BOULARDII 250 MG CAP PO SCH (09:30)
--- NOTE | 2016-10-04 16:54 | PDOCDIS ---
Discharge Instructions CONDITION Patient Condition: Stable HOME CARE INSTRUCTIONS: Diet Instructions: RegularSpecial Diet: RD OTHER ORDERS: Other Orders: 1. Regular diet as tolerated. 2. Complete the course of antibiotics. 3. Follow-up with your PCP in 2 weeks. RONNIE KIM NP Oct 04, 2016 16:54
[2016-10-04] MEDS ORDERED: ZOLP5TAB PO (18:30)
[2016-10-04] MEDS ORDERED: CIPR500T4 PO (18:30)
[2016-10-04] MEDS ORDERED: METR500T PO (18:30)
[2016-10-04] MEDS ORDERED: SACC250C PO (18:31)
--- NOTE | 2016-10-04 19:01 | DS ---
DATE OF ADMISSION: 10/01/2016 DATE OF DISCHARGE: 10/04/2016 FINAL DIAGNOSES: 1. Nonspecific infectious colitis, improved. 2. Right breast cancer. Outpatient oncology followup. 3. Diarrhea, resolved. 4. Gastric dumping syndrome. CONSULTATIONS: Elizabeth Barr MD/Gastroenterology. HOSPITAL COURSE: This is a 50-year-old female, who was recently diagnosed with breast cancer; undergoing chemotherapy, who came to the emergency room with chief complaint of abdominal pain. The patient also reported some subjective fevers. There was also reported nausea and nonbilious, nonbloody vomiting. In the emergency room, the patient underwent a CT scan of the abdomen and pelvis, that showed mild thickening of the colon, which could be due to under distention or nonspecific infectious/inflammatory colitis. The CT also revealed colonic diverticulosis without evidence of diverticulitis. The patient was also noticed to have minimal leukocytosis. Provided the patient's history of present illness and the diagnostic findings, a clinical decision was made to admit the patient to inpatient setting to have her further evaluated. The patient was admitted to inpatient medical/surgical floor. A gastroenterology consult was called. The patient was started on empiric antibiotics. Pancultures were ordered. The patient's stool studies were negative. The patient's blood culture x2 remain negative. The patient's symptomatology improved with antibiotic therapy with ciprofloxacin and Flagyl. Therefore, it was concluded that the patient's symptomatology could have been most probably secondary to infectious colitis. Gastroenterology was following the patient and recommended the current regimen, since the patient was improving with current regimen. As mentioned earlier, the patient had diarrhea upon presentation. The patient had a stool for C. diff done that was negative. The patient was later started on probiotics that improved the patient's diarrhea. The patient was recently diagnosed with breast cancer. The patient is undergoing outpatient chemotherapy. The patient had no evidence of any oncologic emergencies. The patient has history of gastric bypass. Consequently , the patient has gastric dumping syndrome. The patient was maintained on Vitamin B12 supplement. The patient had a stable hospital course. The patient's symptomatology has improved. The patient's diarrhea has resolved. The patient was cleared by consultants to be discharged home. DISCHARGE DISPOSITION/PLAN: The patient will be discharged home today. The patient was instructed to take a regular diet as tolerated. She was instructed to complete the course of antibiotics. She was instructed to follow up with her primary care physician in 2 weeks. The patient was instructed to follow up with her oncologist as scheduled. The patient was instructed to resume activities as tolerated. The patient verbalized understanding of her discharge instructions. CONDITION AT DISCHARGE: Stable. DISCHARGE MEDICATIONS 1. Ciprofloxacin 500 mg p.o. b.i.d. x10 days. 2. Flagyl 500 mg p.o. q.8h x10 days. 3. Florastor 500 mg p.o. b.i.d. 4. Ambien 5 mg p.o. at bedtime p.r.n. insomnia. PERTINENT LABORATORIES AND DIAGNOSTIC DATA: 1. CT scan of the abdomen and pelvis upon admission: Mild thickening of the colon, which could be due to under distention or represent nonspecific infectious/inflammatory colitis, colonic diverticulosis without evidence of diverticulitis, prior gastric surgery. 2. Stool for C. difficile negative. 3. Blood culture x2, negative. 4. Urine culture, inconclusive. 5. Latest CBC: WBC 8.6, hemoglobin 11.7, hematocrit 34.6, platelet count 215, 000. 6. Latest BMP: Sodium 144, potassium 4.0, chloride 100, carbon dioxide 23, anion gap 15, BUN 7, creatinine 0.62, glucose 92, calcium 9.3, phosphorus 4.9, magnesium 1.8. 7. Hemoglobin A1c 5.4 8. Fasting lipid panel: Triglycerides 150, total cholesterol 172, LDL 75, HDL 75. At this time, we would like to thank all the consultants for seeing the patient and providing clinical recommendations. The case and management of this patient was fully discussed with Dr. Scott. Approximately 35 minutes was spent on coordinating the discharge on this patient. RONNIE SCOTT MD, AM/JEZ Conf#: [id number] DID#: [id number] MTDD
== END 2016-10-04 18:15 | disposition home or self-care (01) | DRG 392 ==
LOC: E/R 05:02 → MS1 11:20
PROVIDERS: ADMIT Hospitalist; ATTEND Hospitalist
DX: A09 Infectious gastroenteritis and colitis, unspecified (principal); C50.911 Malignant neoplasm of unspecified site of right female breast; K91.1 Postgastric surgery syndromes; R11.2 Nausea with vomiting, unspecified; K57.90 Diverticulosis of intestine, part unspecified, without perforation or abscess without bleeding; K58.9 Irritable bowel syndrome, unspecified; Z98.84 Bariatric surgery status; Z87.891 Personal history of nicotine dependence; Y83.2 Surgical operation with anastomosis, bypass or graft as the cause of abnormal reaction of the patient, or of later complication, without mention of misadventure at the time of the procedure
CPT/HCPCS: 36415; 74176; 80048; 80053; 80061; 81003; 83036; 83690; 83735; 84100; 84436; 84443; 84479; 85025; 87040; 87075; 87086; 96374; 96375; J0744; J1200; J2270; J2405; J3420; J3480; J7030

== ENCOUNTER 2017-01-10 07:21 | Emergency (ER) | payer OTHER ==
[~2017-01-10] VITALS: Ht 167.6 cm; Wt 76.5 kg
[~2017-01-10 07:21] MED LIST changes: +CIPR500T4 PO; -HYDR-3498 PO; +METR500T PO; +SACC250C PO; -VITAMIN B; +ZOLP5TAB PO
[2017-01-10 07:22] VITALS: Ht 167.6 cm; Wt 76.5 kg
[2017-01-10] MEDS ORDERED: ACETAMINOPHEN 500 MG TAB PO STA (07:45)
[2017-01-10] MEDS ORDERED: ONDANSETRON 4 MG INJ IV STA ×2 (07:45→12:30)
[2017-01-10] MEDS ORDERED: HYDROmorphONE 1 MG/ML SYG IV STA ×3 (07:45→17:12)
[2017-01-10] MEDS ORDERED: SOD CHLORIDE 0.9% 1,000 ML IV STA (07:45)
[2017-01-10 08:00] LABS: ADD SCAN DIFF NO
[2017-01-10] MEDS ORDERED: ERTAPENEM SODIUM 1 GM in SOD CHLORIDE 0.9% 100 ML IVPB ONE (08:00)
[2017-01-10 08:05] LABS: BASOPHILS % 0.3 % (0.0-2.0); EOSINOPHILS % 0.3 % (0.0-7.0); HEMOGLOBIN 14.1 g/dl (12.0-16.0); LYMPHOCYTES # 1.3 10^3/ul (0.8-2.9); LYMPHOCYTES % 13.3 % (15.0-51.0); MEAN CORPUSCULAR HEMOGLOBIN 30.3 pg (29.0-33.0); MEAN CORPUSCULAR HGB CONC 32.8 g/dl (32.0-37.0); MEAN CORPUSCULAR VOLUME 92.3 fl (82.0-101.0); MEAN PLATELET VOLUME 8.9 fl (7.4-10.4); MONOCYTE # 0.6 10^3/ul (0.3-0.9); MONOCYTES % 6.3 % (0.0-11.0); NEUTROPHIL # 7.8 10^3/ul (1.6-7.5); NEUTROPHILS % 79.6 % (39.0-77.0); PLATELET COUNT 195 10^3/UL (140-415); RED BLOOD COUNT 4.66 10^6/ul (4.20-5.40); RED CELL DISTRIBUTION WIDTH 14.6 % (11.5-14.5); WHITE BLOOD COUNT 9.8 10^3/ul (4.8-10.8)
[2017-01-10 08:17] LABS: ALBUMIN 3.9 g/dl (3.3-4.9)
[2017-01-10 08:18] LABS: POTASSIUM 3.6 mmol/L (3.5-5.1)
[2017-01-10 08:20] LABS: ALBUMIN/GLOBULIN RATIO 1.21; BILIRUBIN,INDIRECT 0.7 mg/dl (0-1.1); BILIRUBIN,TOTAL 0.7 mg/dl (0.2-1.3); CREATININE 0.61 mg/dl (0.44-1.00); TOTAL PROTEIN 7.1 g/dl (6.1-8.1)
[2017-01-10] MEDS ORDERED: TAMO10TA20 PO (08:49)
[2017-01-10] MEDS ORDERED: LORA-444 PO (08:50)
[2017-01-10] MEDS ORDERED: ZOLP10TA5 PO (08:52)
[2017-01-10] MEDS ORDERED: ZOF8 PO (08:59)
[2017-01-10] MEDS ORDERED: [UNRECOGNIZED DRUG - CODE] IJ (09:01)
[2017-01-10] MEDS ORDERED: IOHEXOL 300MG/ML 150 ML BTL ONE (09:12)
[2017-01-10] MEDS ORDERED: SOD CHLORIDE 0.9% 100 ML ONE (09:12)
--- NOTE | 2017-01-10 09:48 | RADRPT ---
PROCEDURE: CT Abdomen and Pelvis with Contrast CLINICAL INDICATION: Lower abdominal pain right greater than left with fever rule out appendicitis, history of right mastectomy for breast carcinoma and history of colitis with diverticulosis. TECHNIQUE: Transaxial images were obtained through the abdomen and pelvis on a multi-slice scanner following the intravenous administration of iodinated contrast. No oral contrast had previously be en given. Sagittal and coronal re-formations were subsequently reconstructed. One or more of the following dose reduction techniques were used: - Automated exposure control. - Adjustment of the mA and/or kV according to patient size. - Use of iterative reconstruction technique. Radiation dose: CTDIvol = 14.20 mGy; DLP = 817.21 mGy-cm. COMPARISON: 10/01/2016 FINDINGS: Lung bases: The visualized lung bases appear unremarkable. Liver: A 3 mm hypodensity is seen in the lateral right lobe of the liver and a 2 mm hypodensity is s een within the anterior right lobe suspicious for cysts, unchanged from the previous. The liver is mildly enlarged. The hepatic and portal veins appear patent. Gallbladder: The wall is not thickened. No radiopaque stones are identified. Bile ducts: The common bile duct is dilated measuring 8.3 mm through the head of the pancreas. No ch oledocholith is evident. Pancreas: Appears normal with no mass or inflammation evident. Spleen: Normal in size with no focal lesion. Adrenals: Normal with no mass identified. Kidneys, ureters and bladder: The kidneys enhance normally and are normal in size and there is no ma ss, pathological calcification, or hydronephrosis evident. There is no perinephric stranding. The ur eters are normal in caliber and no ureteroliths are identified. The bladder appears unremarkable. Reproductive organs: The uterus deviates to the right of midline. A 1.4 x 0.9 cm left adnexal cyst is evident. Metallic densities compatible with surgical clips are seen in the pelvis 1 in the left adnexal region and 1 within the cul-de-sac. Stomach, bowel, and mesentery: There is evidence of gastric surgery with staple lines evident. Stap le lines are also seen within the jejunum. Diverticuli are seen extensively through the descending and sigmoid colon. There is bowel wall thickening and considerable stranding extending into the adj acent fat at the distal sigmoid colon compatible with diverticulitis. There is no evidence of bowel obstruction. Appendix: A normal-appearing vermiform appendix is evident. Peritoneum: There is a small amount of free fluid seen within the cul-de-sac. No free air is identi fied. Aorta: Normal in caliber with no aneurysmal dilatation. IVC: Unremarkable. Lymph nodes: No pathologically enlarged nodes are identified. Osseous structures: The osseous elements appear intact. IMPRESSION: 1. When compared to the previous CT of 10/01/2016 there is again extensive diverticulosis of the de scending and sigmoid colon but there is been interval development of diverticulitis seen extensively through the distal sigmoid colon with stranding extending into the adjacent fat. There is again ev idence of previous gastric and jejunal surgery. There is no evidence of bowel obstruction. 2. There is a small amount of free intraperitoneal fluid with no free air identified. No abscess i s evident. 3. There is again no evidence of cholelithiasis but the common bile duct has become dilated measuri ng 8.3 mm to the head of the pancreas. No choledocholith is evident and the pancreas appears unrema rkable. 4. Interval development of a small left adnexal cyst. 5. Persistent mild hepatomegaly with 2 tiny cysts seen within the right lobe of the liver, unchange d. Physician Óscar Date Time Electronically viewed and signed by Physician Óscar on 01/10/2017 09:48 /
[2017-01-10 10:21] LABS: ADD UMIC YES; URINE BILIRUBIN (Dip) NEGATIVE (NEGATIVE); URINE BLOOD (Dip) TRACE (NEGATIVE); URINE COLOR YELLOW (YELLOW); URINE GLUCOSE (Dip) NEGATIVE (NEGATIVE); URINE KETONES (Dip) NEGATIVE (NEGATIVE); URINE LEUKOCYTE ESTERASE (Dip) NEGATIVE (NEGATIVE); URINE NITRITE (Dip) NEGATIVE (NEGATIVE); URINE TOTAL PROTEIN (Dip) TRACE (NEGATIVE); URINE UROBILINOGEN (Dip) 0.2 E.U./dL (0.1-1.0)
[2017-01-10 10:37] LABS: BACTERIA,URINE FEW; MUCUS,URINE FEW
--- NOTE | 2017-01-10 12:41 | ERA ---
ER Documentation Chief Complaint Date/Time DATE: 01/10/17 TIME: 12:37 Chief Complaint abdominal pain 4days,fever.hx colitis.on chemo and radiation for breast ca HPI This is a 51-year-old female with a history of breast cancer undergoing chemotherapy, she states she is through with intravenous and is only using oral now. She states she developed left-sided abdominal pain 3 days ago with worsening of pain described as sharp and nonradiating. She said she developed a fever this morning so decided to come in. She is having no diarrhea but states she had a little vomiting. No pain in the back no dysuria suprapubic pain no headache chest pain cough or shortness of breath. ROS All systems reviewed and are negative except as per history of present illness. Medications Home Meds Reported Medications Cyanocobalamin (Vitamin B-12) (B-12 Compliance) 1,000 Mcg/1 Ml Kit, 1000 MCG IJ WEEKLY, KIT 01/10/17 Ondansetron Hcl* (Zofran*) 8 Mg Tab, 8 MG PO Q6H Y for NAUSEA AND OR VOMITING, TAB 01/10/17 Zolpidem Tartrate* (Zolpidem Tartrate*) 10 Mg Tablet, 10 MG PO QHS Y for INSOMNIA, #30 TAB 01/10/17 Lorazepam* (Ativan*) 2 Mg Tablet, 2 MG PO BID Y for ANXIETY, #30 TAB 01/10/17 Tamoxifen Citrate* (Tamoxifen Citrate*) 10 Mg Tab, 10 MG PO BID, TAB 01/10/17 Discontinued Scripts Saccharomyces Boulardii* (Florastor*) 250 Mg Cap, 500 MG PO BID, #20 CAP Prov:RONNIE KIM LOCKSTITCH TUNNEL ELASTIC OPERATOR 10/04/16 Zolpidem Tartrate* (Ambien*) 5 Mg Tablet, 5 MG PO QHS Y for INSOMNIA, #20 TAB Prov:RONNIE KIM LOCKSTITCH TUNNEL ELASTIC OPERATOR 10/04/16 Metronidazole* (Flagyl*) 500 Mg Tablet, 500 MG PO Q8 for 10 Days, TAB Prov:RONNIE KIM LOCKSTITCH TUNNEL ELASTIC OPERATOR 10/04/16 Ciprofloxacin Hcl* (Ciprofloxacin Hcl*) 500 Mg Tablet, 500 MG PO BID for 10 Days , #20 TAB Prov:RONNIE KIM LOCKSTITCH TUNNEL ELASTIC OPERATOR 10/04/16 Allergies Allergies: Coded Allergies: Sulfa (Sulfonamide Antibiotics) (Verified Allergy, Mild, 01/10/17) adhesive tape (Verified Allergy, Unknown, RASH, 01/10/17) PMhx/Soc History of Surgery: Yes (RT MASTECTOMY 2016,RECATL SX 2YRS AGO) Anesthesia Reaction: No Hx Neurological Disorder: No Hx Respiratory Disorders: No Hx Cardiac Disorders: No Hx Psychiatric Problems: No Hx Miscellaneous Medical Probl: No Hx Alcohol Use: No Hx Substance Use: No Hx Tobacco Use: No Smoking Status: Former smoker FmHx Family History: No coronary disease Physical Exam Vitals Vital Signs Date Time Temp Pulse Resp B/P Pulse Ox O2 Delivery O2 Flow Rate FiO2 01/10/17 07:45 92 18 117/82 97 Room Air 01/10/17 07:22 100.3 102 18 133/63 98 Physical Exam Const: Well-developed, well-nourished Head: Atraumatic, normocephalic Eyes: Normal Conjunctiva, PERRLA, EOMI, normal sclera, no nystagmus ENT: Normal External Ears, Nose and Mouth, moist mucus membranes. Neck: Full range of motion. No meningismus, no lymphadenopathy. Resp: Clear to auscultation bilaterally, no wheezing, rhonchi, rales Cardio: Regular rate and rhythm, no murmurs, S1 S2 present Abd: Soft, left-sided abdominal tenderness moderate, positive rebound locally in the left lower abdomen, non distended. Normal bowel sounds, no pulsitile abdominal masses or bruits Skin: No petechiae or rashes, no ecchymosis , no maculopapular rash Back: No midline or flank tenderness Ext: No cyanosis, or edema, FROM x 4, normal inspection, neurovascularly intact x 4 Neur: Awake and alert, STR 5/5 x 4, sensation intact x 4, no focal findings, cerebellum intact Psych: Normal Mood and Affect Result Diagram: 01/10/17 0740 01/10/17 0740 Results 24 hrs Laboratory Tests Test 01/10/17 07:40 01/10/17 09:30 White Blood Count 9.810^3/ul Red Blood Count 4.6610^6/ul Hemoglobin 14.1g/dl Hematocrit 43.0% Mean Corpuscular Volume 92.3fl Mean Corpuscular Hemoglobin 30.3pg Mean Corpuscular Hemoglobin Concent 32.8g/dl Red Cell Distribution Width 14.6% Platelet Count 06559^3/UL Mean Platelet Volume 8.9fl Neutrophils % 79.6% Lymphocytes % 13.3% Monocytes % 6.3% Eosinophils % 0.3% Basophils % 0.3% Nucleated Red Blood Cells % 0.0/100WBC Neutrophils # 7.810^3/ul Lymphocytes # 1.310^3/ul Monocytes # 0.610^3/ul Eosinophils # 0.010^3/ul Basophils # 0.010^3/ul Nucleated Red Blood Cells # 0.010^3/ul Sodium Level 138mmol/L Potassium Level 3.6mmol/L Chloride Level 101mmol/L Carbon Dioxide Level 26mmol/L Anion Gap 15 Blood Urea Nitrogen 10mg/dl Creatinine 0.61mg/dl Glucose Level 109mg/dl Calcium Level 9.0mg/dl Total Bilirubin 0.7mg/dl Direct Bilirubin 0.00mg/dl Indirect Bilirubin 0.7mg/dl Aspartate Amino Transf (AST/SGOT) 21IU/L Alanine Aminotransferase (ALT/SGPT) 30IU/L Alkaline Phosphatase 96IU/L Total Protein 7.1g/dl Albumin 3.9g/dl Globulin 3.20g/dl Albumin/Globulin Ratio 1.21 Lipase 40U/L Urine Color YELLOW Urine Clarity CLEAR Urine pH 5.5 Urine Specific [place] 1.020 Urine Ketones NEGATIVE Urine Nitrite NEGATIVE Urine Bilirubin NEGATIVE Urine Urobilinogen 0.2 E.U./dL Urine Leukocyte Esterase NEGATIVE Urine Microscopic RBC 2-5/HPF Urine Microscopic WBC 0-2/HPF Urine Epithelial Cells MODERATE Urine Bacteria FEW Urine Mucus FEW Urine Yeast RARE Urine Hemoglobin TRACE Urine Glucose NEGATIVE% Urine Total Protein TRACE Current Medications Medications (Trade) Dose Ordered Sig/Brenda Route PRN Reason Start Time Stop Time Status Last Admin Dose Admin Sodium Chloride (NS) 1,000 ml @ 1,000 mls/hr Q1H STAT IV 01/10/17 07:45 01/10/17 08:44 DC 01/10/17 08:03 Hydromorphone HCl (Dilaudid) 1 mg ONCE STAT IV 01/10/17 07:45 01/10/17 07:48 DC 01/10/17 08:04 Ondansetron HCl (Zofran Inj) 4 mg ONCE STAT IV 01/10/17 07:45 01/10/17 07:48 DC 01/10/17 08:03 Acetaminophen 1000 mg 1,000 mg ONCE STAT PO 01/10/17 07:45 01/10/17 07:48 DC 01/10/17 08:03 Ertapenem/Sodium Chloride (Invanz/NS) 100 ml @ 200 mls/hr ONCE ONCE IVPB 01/10/17 08:00 01/10/17 08:29 DC 01/10/17 08:11 IV Flush 10 ml 10 ml STK-MED ONCE .ROUTE 01/10/17 09:12 01/10/17 09:13 DC 01/10/17 09:31 Sodium Chloride (NS) 100 ml @ ud STK-MED ONCE .ROUTE 01/10/17 09:12 01/10/17 09:13 DC 01/10/17 09:31 Iohexol (Omnipaque 300mg/ ml) 150 ml STK-MED ONCE .ROUTE 01/10/17 09:12 01/10/17 09:13 DC 01/10/17 09:31 Hydromorphone HCl (Dilaudid) 1 mg ONCE STAT IV 01/10/17 12:30 01/10/17 12:31 DC Ondansetron HCl (Zofran Inj) 4 mg ONCE STAT IV 01/10/17 12:30 01/10/17 12:31 DC Procedures/MDM PROCEDURE: CT Abdomen and Pelvis with Contrast CLINICAL INDICATION: Lower abdominal pain right greater than left with fever rule out appendicitis, history of right mastectomy for breast carcinoma and history of colitis with diverticulosis. TECHNIQUE: Transaxial images were obtained through the abdomen and pelvis on a multi-slice scanner following the intravenous administration of iodinated contrast. No oral contrast had previously been given. Sagittal and coronal re- formations were subsequently reconstructed. One or more of the following dose reduction techniques were used: - Automated exposure control. - Adjustment of the mA and/or kV according to patient size. - Use of iterative reconstruction technique. Radiation dose: CTDIvol = 14.20 mGy; DLP = 817.21 mGy-cm. COMPARISON: 10/01/2016 FINDINGS: Lung bases: The visualized lung bases appear unremarkable. Liver: A 3 mm hypodensity is seen in the lateral right lobe of the liver and a 2 mm hypodensity is seen within the anterior right lobe suspicious for cysts, unchanged from the previous. The liver is mildly enlarged. The hepatic and portal veins appear patent. Gallbladder: The wall is not thickened. No radiopaque stones are identified. Bile ducts: The common bile duct is dilated measuring 8.3 mm through the head of the pancreas. No choledocholith is evident. Pancreas: Appears normal with no mass or inflammation evident. Spleen: Normal in size with no focal lesion. Adrenals: Normal with no mass identified. Kidneys, ureters and bladder: The kidneys enhance normally and are normal in size and there is no mass, pathological calcification, or hydronephrosis evident. There is no perinephric stranding. The ureters are normal in caliber and no ureteroliths are identified. The bladder appears unremarkable. Reproductive organs: The uterus deviates to the right of midline. A 1.4 x 0.9 cm left adnexal cyst is evident. Metallic densities compatible with surgical clips are seen in the pelvis 1 in the left adnexal region and 1 within the cul- de-sac. Stomach, bowel, and mesentery: There is evidence of gastric surgery with staple lines evident. Staple lines are also seen within the jejunum. Diverticuli are seen extensively through the descending and sigmoid colon. There is bowel wall thickening and considerable stranding extending into the adjacent fat at the distal sigmoid colon compatible with diverticulitis. There is no evidence of bowel obstruction. Appendix: A normal-appearing vermiform appendix is evident. Peritoneum: There is a small amount of free fluid seen within the cul-de-sac. No free air is identified. Aorta: Normal in caliber with no aneurysmal dilatation. IVC: Unremarkable. Lymph nodes: No pathologically enlarged nodes are identified. Osseous structures: The osseous elements appear intact. IMPRESSION: 1. When compared to the previous CT of 10/01/2016 there is again extensive diverticulosis of the descending and sigmoid colon but there is been interval development of diverticulitis seen extensively through the distal sigmoid colon with stranding extending into the adjacent fat. There is again evidence of previous gastric and jejunal surgery. There is no evidence of bowel obstruction. 2. There is a small amount of free intraperitoneal fluid with no free air identified. No abscess is evident. 3. There is again no evidence of cholelithiasis but the common bile duct has become dilated measuring 8.3 mm to the head of the pancreas. No choledocholith is evident and the pancreas appears unremarkable. 4. Interval development of a small left adnexal cyst. 5. Persistent mild hepatomegaly with 2 tiny cysts seen within the right lobe of the liver, unchanged. Physician Óscar Date Time Electronically viewed and signed by Josse Conway Physician on 01/10/2017 09:48 RH/ CC: LIBRADO GOODMAN DO Patient has acute diverticulitis and will admit to the hospital for intravenous antibiotic therapy and fluids and pain control. Patient is on chemotherapy and has a higher risk for sepsis or worsening of condition She is given intravenous fluids, Invanz and pain control Departure Diagnosis: Primary Impression: Diverticulitis Qualified Code: K57.32 - Diverticulitis of large intestine without perforation or abscess without bleeding Condition: Stable LIBRADO GOODMAN DO January 10, 2017 12:41
[2017-01-10 18:42] VITALS: BP 126/88; PULSE 78; RESP 20; TEMP 99.2
== END 2017-01-10 19:54 | disposition short-term general hospital (02) ==
LOC: E/R 07:21
DX: K57.32 Diverticulitis of large intestine without perforation or abscess without bleeding (principal); R40.2252 Coma scale, best verbal response, oriented, at arrival to emergency department; C50.919 Malignant neoplasm of unspecified site of unspecified female breast; R40.2142 Coma scale, eyes open, spontaneous, at arrival to emergency department; R40.2362 Coma scale, best motor response, obeys commands, at arrival to emergency department; R11.10 Vomiting, unspecified; Z87.891 Personal history of nicotine dependence
CPT/HCPCS: 74177; 80053; 81001; 83690; 85025; J1170; J1335; J2405; J7030; Q9967; 81003

== ENCOUNTER 2017-03-07 16:50 | Emergency (ER) | END 2017-03-07 18:22 | disposition home or self-care (01) | DX: S99.921A Unspecified injury of right foot, initial encounter (principal); X50.9XXA Other and unspecified overexertion or strenuous movements or postures, initial encounter; Y92.9 Unspecified place or not applicable ==

== ENCOUNTER 2017-06-09 00:31 | Emergency (ER) | payer OTHER ==
[~2017-06-09] VITALS: Ht 167.6 cm; Wt 78.0 kg
[~2017-06-09 00:31] MED LIST changes: -CIPR500T4 PO; +IBUP-1542 PO; +LORA-444 PO; -METR500T PO; -SACC250C PO; +TAMO10TA20 PO; +ZOF8 PO; +ZOLP10TA5 PO; -ZOLP5TAB PO; +[UNRECOGNIZED DRUG - CODE] IJ
[2017-06-09 00:52] VITALS: Ht 167.6 cm; Wt 78.0 kg
--- NOTE | 2017-06-09 01:49 | ERA ---
ER Documentation Chief Complaint Date/Time DATE: 06/09/17 TIME: 01:48 Chief Complaint LLQ pain HPI The patient is a 51-year-old female, presenting to the ER because of left lower quadrant abdominal pain for 2 days, diarrhea for 1 week intermittently. She was started on Cipro and Flagyl physician today for possible diverticulitis. She has similar symptoms previously from diverticulitis. Denies hematochezia, hematemesis, dysuria. She smokes and drinks Past Medical history: Anxiety, history of right breast cancer post chemotherapy and radiation therapy, gastric dumping syndrome, IBS Past Surgical history: Right partial mastectomy, gastric bypass ROS All systems reviewed and are negative except as per history of present illness. Medications Home Meds Active Scripts Tramadol HCl (Tramadol HCl) 50 Mg Tablet, 50 MG PO Q6 Y for PAIN, #10 TAB Prov:JONO PHELAN MD 06/09/17 Ibuprofen* (Motrin*) 600 Mg Tab, 600 MG PO Q6, #20 TAB Prov:ADAN ARCHER MD 03/07/17 Reported Medications Metronidazole* (Metronidazole*) 500 Mg Tablet, 500 MG PO Q8, TAB TAKE 1 TABLET BY MOUTH THREE TIMES A DAY 06/09/17 Ciprofloxacin Hcl* (Ciprofloxacin Hcl*) 500 Mg Tablet, 500 MG PO BID, #14 TAB TAKE 1 TABLET BY MOUTH DAILY 06/09/17 Amoxicillin* (Amoxicillin*) 500 Mg Cap, 500 MG PO Q8, #30 CAP 06/09/17 Cholecalciferol (Vitamin D3) (Vitamin D3) 5,000 Unit Tab.rapdis, 5000 UNIT PO 06/09/17 Ibuprofen* (Ibuprofen*) 200 Mg Capsule, 200 MG PO Q6, CAP 06/09/17 Cyanocobalamin (Vitamin B-12) (B-12 Compliance) 1,000 Mcg/1 Ml Kit, 1000 MCG IJ WEEKLY, KIT 01/10/17 Ondansetron Hcl* (Zofran*) 8 Mg Tab, 8 MG PO Q6H Y for NAUSEA AND OR VOMITING, TAB 01/10/17 Zolpidem Tartrate* (Zolpidem Tartrate*) 10 Mg Tablet, 10 MG PO QHS Y for INSOMNIA, #30 TAB 01/10/17 Lorazepam* (Ativan*) 2 Mg Tablet, 2 MG PO BID Y for ANXIETY, #30 TAB 01/10/17 Tamoxifen Citrate* (Tamoxifen Citrate*) 10 Mg Tab, 10 MG PO BID, TAB 01/10/17 Allergies Allergies: Coded Allergies: Sulfa (Sulfonamide Antibiotics) (Verified Allergy, Mild, 03/07/17) adhesive tape (Verified Allergy, Unknown, RASH, 03/07/17) PMhx/Soc History of Surgery: Yes (RT MASTECTOMY 2016,RECATL SX 2YRS AGO) Anesthesia Reaction: No Hx Neurological Disorder: No Hx Respiratory Disorders: No Hx Cardiac Disorders: No Hx Psychiatric Problems: No Hx Miscellaneous Medical Probl: No Hx Alcohol Use: No Hx Substance Use: No Hx Tobacco Use: No Physical Exam Vitals Vital Signs Date Time Temp Pulse Resp B/P Pulse Ox O2 Delivery O2 Flow Rate FiO2 06/09/17 03:59 60 16 182/91 99 Room Air 06/09/17 00:52 99.3 71 18 149/82 97 Physical Exam Const: No acute distress. Head: Atraumatic. Eyes: Normal Conjunctiva. ENT: Normal External Ears, Nose and Mouth. Neck: Full range of motion. No meningismus. Resp: Clear to auscultation bilaterally. Cardio: Regular rate and rhythm. Abd: Soft, non distended, normal bowel sounds, minimal and vague diffuse abdominal tenderness, no rigidity, rebound, CVA tenderness. Skin: No petechiae or rashes. Back: No midline or flank tenderness. Ext: No cyanosis, or edema. Neur: Awake and alert. No focal deficit Psych: Normal Mood and Affect. Result Diagram: 06/09/174 06/09/174 Results 24 hrs Laboratory Tests Test 06/09/17 02:24 06/09/17 02:36 White Blood Count 6.810^3/ul Red Blood Count 4.7210^6/ul Hemoglobin 14.3g/dl Hematocrit 43.5% Mean Corpuscular Volume 92.2fl Mean Corpuscular Hemoglobin 30.3pg Mean Corpuscular Hemoglobin Concent 32.9g/dl Red Cell Distribution Width 13.1% Platelet Count 70143^3/UL Mean Platelet Volume 8.5fl Neutrophils % 67.8% Lymphocytes % 25.1% Monocytes % 6.1% Eosinophils % 0.6% Basophils % 0.3% Nucleated Red Blood Cells % 0.0/100WBC Neutrophils # 4.610^3/ul Lymphocytes # 1.710^3/ul Monocytes # 0.410^3/ul Eosinophils # 0.010^3/ul Basophils # 0.010^3/ul Nucleated Red Blood Cells # 0.010^3/ul Sodium Level 140mmol/L Potassium Level 3.4mmol/L Chloride Level 106mmol/L Carbon Dioxide Level 26mmol/L Anion Gap 11 Blood Urea Nitrogen 12mg/dl Creatinine 0.84mg/dl Glucose Level 115mg/dl Calcium Level 9.6mg/dl Total Bilirubin 0.4mg/dl Direct Bilirubin 0.00mg/dl Indirect Bilirubin 0.4mg/dl Aspartate Amino Transf (AST/SGOT) 28IU/L Alanine Aminotransferase (ALT/SGPT) 41IU/L Alkaline Phosphatase 110IU/L Total Protein 7.3g/dl Albumin 4.0g/dl Globulin 3.30g/dl Albumin/Globulin Ratio 1.21 Lipase 91U/L Bedside Urine pH (LAB) 5.0 Bedside Urine Protein (LAB) Negative Bedside Urine Glucose (UA) Negative Bedside Urine Ketones (LAB) Negative Bedside Urine Blood Trace-intact Bedside Urine Nitrite (LAB) Negative Bedside Urine Leukocyte Esterase (L Negative Current Medications Medications (Trade) Dose Ordered Sig/Brenda Route PRN Reason Start Time Stop Time Status Last Admin Dose Admin Sodium Chloride (NS) 1,000 ml @ 1,000 mls/hr Q1H STAT IV 06/09/17 01:55 06/09/17 02:54 DC 06/09/17 02:34 Morphine Sulfate (morphine) 4 mg ONCE STAT IV 06/09/17 01:55 06/09/17 01:57 DC 06/09/17 02:33 Ondansetron HCl (Zofran Inj) 4 mg ONCE STAT IV 06/09/17 01:55 06/09/17 01:57 DC 06/09/17 02:34 Potassium Chloride (Klor-Con 20) 20 meq ONCE ONCE PO 06/09/17 05:18 06/09/17 05:19 DC Procedures/[place] [id number] Radiology Main Line: [phone] DIAGNOSTIC IMAGING REPORT Patient: YUDI ALCARAZ : 1965 Age: 51 Sex: F MR #: [id number] DOS: 06/09/17 0155 Ordering MD: JONO PHELAN MD Location: E/R Room/Bed: PROCEDURE: Chest. CLINICAL INDICATION: Chest pain. TECHNIQUE: Single frontal view of the chest was obtained. COMPARISON: 08/03/2016. FINDINGS: The cardiac silhouette is within normal limits. The aortic arch is unremarkable. There is no focal consolidation, vascular congestion or pleural effusion. There is no pneumothorax. IMPRESSION: No evidence for active cardiopulmonary disease. .Con Cardona MD, MD Date Time Electronically viewed and signed by .Con Cardona MD, MD on 06/09/2017 04:13 .T/ CC: JONO PHELAN MD [place] [id number] Radiology Main Line: [phone] DIAGNOSTIC IMAGING REPORT Patient: YUDI ALCARAZ : 1965 Age: 51 Sex: F MR #: [id number] DOS: 06/09/17 0155 Ordering MD: JONO PHELAN MD Location: E/R Room/Bed: PROCEDURE: CT of the abdomen and pelvis without contrast CLINICAL INDICATION: Abdominal pain. TECHNIQUE: Spiral CT images through the abdomen and pelvis without the use of oral and without the use of intravenous contrast. The administered radiation dose is CTDI 12.71 and DLP 769.93. One or more of the following dose reduction techniques were used: automated exposure control, adjustment of the mA and/or kV according to patient size, or use of iterative reconstruction technique. COMPARISON: 01/10/2017 FINDINGS: The study is limited by lack of intravenous contrast. Lower thorax: Slight dependent atalectasis of the lung bases is seen.. There does appear to be slight skin thickening of the right breast. Liver: Tiny probable hepatic cysts again seen.. Biliary: The gallbladder is unremarkable.. No biliary ductal dilatation is seen. Pancreas: Unremarkable. No focal mass or inflammatory process. Spleen: Tiny calcified granuloma. Adrenal glands: Unremarkable in appearance. No focal nodule.. Genitourinary: No hydronephrosis or renal calculi are seen.. The bladder is unremarkable in appearance.. Gastrointestinal Tract: There is no evidence for bowel obstruction, free air, or abscess. The appendix is unremarkable in appearance. Postoperative changes from prior gastric bypass surgery are again seen. Again seen is prominent colonic diverticulosis. There is no evidence for diverticulitis. Lymph nodes: No adenopathy is seen... Vascular structures: The aorta and mesenteric vessels are unremarkable.. Peritoneal cavity: Unremarkable mesentery and peritoneum.. No mass, edema, or ascites. Reproductive Organs: The uterus and ovaries are unremarkable in appearance. Left tubal ligation clip appears in good position. Right tubal ligation clip lies posterior to the uterus and is malpositioned. This is unchanged. Musculoskeletal: There is mild degenerative change of the spine. Nodular skin thickening of the anterior abdominal wall which may be due to scar from prior surgery is again seen. IMPRESSION: Diverticulosis without evidence of diverticulitis. Prior gastric bypass surgery.. RPTAT: [facility] Physician Brinda Date Time Electronically viewed and signed by Physician Brinda on 06/09/2017 04 :23 LE/ CC: JONO PHELAN MD MEDICAL MAKING DECISION: The patient is a 51-year-old female, presenting with acute abdominal pain of unclear etiology, acute hypokalemia She was treated with morphine 4 mg IV for pain, Zofran 4 mg IV for nausea and potassium chloride 20 mEq p.o. for acute hypokalemia with good response The differential diagnoses considered include but are not limited to cholelithiasis, cholecystitis, cystitis, pancreatitis, hepatitis, gastritis, peptic ulcer disease, gastric ulcer, appendicitis, diverticulitis, cholangitis, choledocholithiasis, partial small bowel obstruction. Departure Diagnosis: Primary Impression: Abdominal pain Additional Impression: Hypokalemia Condition: Good Comments She was discharged with [facility] I discussed the findings with the patient. I advised the patient to follow-up with the primary physician in about 1-2 days, sooner if needed and return if any concern. The patient's blood pressure was elevated (>120/80) but appears stable without evidence of hypertension emergency or urgency. The patient was counseled about the risks of hypertension and urged to pursue outpatient monitoring and therapy within a week with their primary care physician. JONO PHELAN MD Jun 09, 2017 01:49
[2017-06-09] MEDS ORDERED: SOD CHLORIDE 0.9% 1,000 ML IV STA (01:55)
[2017-06-09] MEDS ORDERED: morphine 4 MG/ML VIAL IV STA (01:55)
[2017-06-09] MEDS ORDERED: ONDANSETRON 4 MG INJ IV STA (01:55)
[2017-06-09 02:28] LABS: URINE BLOOD (Dip) POC Trace-intact (NEGATIVE)
[2017-06-09 02:41] LABS: BASOPHILS % 0.3 % (0.0-2.0); EOSINOPHILS % 0.6 % (0.0-7.0); HEMATOCRIT 43.5 % (37.0-47.0); HEMOGLOBIN 14.3 g/dl (12.0-16.0); LYMPHOCYTES # 1.7 10^3/ul (0.8-2.9); LYMPHOCYTES % 25.1 % (15.0-51.0); MEAN CORPUSCULAR HEMOGLOBIN 30.3 pg (29.0-33.0); MEAN CORPUSCULAR HGB CONC 32.9 g/dl (32.0-37.0); MEAN CORPUSCULAR VOLUME 92.2 fl (82.0-101.0); MEAN PLATELET VOLUME 8.5 fl (7.4-10.4); MONOCYTE # 0.4 10^3/ul (0.3-0.9); MONOCYTES % 6.1 % (0.0-11.0); NEUTROPHIL # 4.6 10^3/ul (1.6-7.5); NEUTROPHILS % 67.8 % (39.0-77.0); PLATELET COUNT 209 10^3/UL (140-415); RED BLOOD COUNT 4.72 10^6/ul (4.20-5.40); RED CELL DISTRIBUTION WIDTH 13.1 % (11.5-14.5); WHITE BLOOD COUNT 6.8 10^3/ul (4.8-10.8)
[2017-06-09 03:06] LABS: ALBUMIN/GLOBULIN RATIO 1.21; BILIRUBIN,INDIRECT 0.4 mg/dl (0-1.1); BILIRUBIN,TOTAL 0.4 mg/dl (0.2-1.3); CALCIUM 9.6 mg/dl (8.4-10.2); CREATININE 0.84 mg/dl (0.44-1.00); POTASSIUM 3.4 mmol/L (3.5-5.1); TOTAL PROTEIN 7.3 g/dl (6.1-8.1)
--- NOTE | 2017-06-09 04:13 | RADRPT ---
PROCEDURE: Chest. CLINICAL INDICATION: Chest pain. TECHNIQUE: Single frontal view of the chest was obtained. COMPARISON: 08/03/2016. FINDINGS: The cardiac silhouette is within normal limits. The aortic arch is unremarkable. There is no focal consolidation, vascular congestion or pleural effusion. There is no pneumothorax. IMPRESSION: No evidence for active cardiopulmonary disease. .Con Cardona MD, Date Time Electronically viewed and signed by .Con Cardona MD, on 06/09/2017 04:13 .T/
--- NOTE | 2017-06-09 04:23 | RADRPT ---
PROCEDURE: CT of the abdomen and pelvis without contrast CLINICAL INDICATION: Abdominal pain. TECHNIQUE: Spiral CT images through the abdomen and pelvis without the use of oral and without the use of intravenous contrast. The administered radiation dose is CTDI 12.71 and DLP 769.93. One or more of the following dose reduction techniques were used: automated exposure control, adjustment of the mA and/or kV according to patient size, or use of iterative reconstruction technique. COMPARISON: 01/10/2017 FINDINGS: The study is limited by lack of intravenous contrast. Lower thorax: Slight dependent atalectasis of the lung bases is seen.. There does appear to be sligh t skin thickening of the right breast. Liver: Tiny probable hepatic cysts again seen.. Biliary: The gallbladder is unremarkable.. No biliary ductal dilatation is seen. Pancreas: Unremarkable. No focal mass or inflammatory process. Spleen: Tiny calcified granuloma. Adrenal glands: Unremarkable in appearance. No focal nodule.. Genitourinary: No hydronephrosis or renal calculi are seen.. The bladder is unremarkable in appearan ce.. Gastrointestinal Tract: There is no evidence for bowel obstruction, free air, or abscess. The appen juliana is unremarkable in appearance. Postoperative changes from prior gastric bypass surgery are aga in seen. Again seen is prominent colonic diverticulosis. There is no evidence for diverticulitis. Lymph nodes: No adenopathy is seen... Vascular structures: The aorta and mesenteric vessels are unremarkable.. Peritoneal cavity: Unremarkable mesentery and peritoneum.. No mass, edema, or ascites. Reproductive Organs: The uterus and ovaries are unremarkable in appearance. Left tubal ligation clip appears in good position. Right tubal ligation clip lies posterior to the uterus and is malposition ed. This is unchanged. Musculoskeletal: There is mild degenerative change of the spine. Nodular skin thickening of the ante rior abdominal wall which may be due to scar from prior surgery is again seen. IMPRESSION: Diverticulosis without evidence of diverticulitis. Prior gastric bypass surgery.. RPTAT: [facility] Physician Brinda Date Time Electronically viewed and signed by La Child Physician on 06/09/2017 04:23 LE/
[2017-06-09] MEDS ORDERED: CHOL500062 PO (04:58)
[2017-06-09] MEDS ORDERED: IBUP200C PO (04:58)
[2017-06-09] MEDS ORDERED: CIPR500T4 PO (05:03)
[2017-06-09] MEDS ORDERED: METR500T14 PO (05:03)
[2017-06-09] MEDS ORDERED: AMOX500C2 PO (05:03)
[2017-06-09] MEDS ORDERED: TRAM50TA2 PO (05:15)
[2017-06-09] MEDS ORDERED: POTASSIUM CHLORIDE (SR) 20 MEQ TAB PO ONE (05:18)
[2017-06-09 05:33] VITALS: BP 142/99; PULSE 64; RESP 16
== END 2017-06-09 06:13 | disposition home or self-care (01) ==
LOC: E/R 00:31
DX: E87.6 Hypokalemia (principal); R10.84 Generalized abdominal pain; Z85.3 Personal history of malignant neoplasm of breast
CPT/HCPCS: 36415; 71010; 74176; 80053; 81003; 83690; 85025; 96374; 96375; 99285; J2270; J2405; J7030

== ENCOUNTER 2017-06-10 07:43 | Emergency (ER) | payer OTHER ==
[~2017-06-10] VITALS: Ht 172.7 cm; Wt 76.0 kg
[~2017-06-10 07:43] MED LIST changes: +AMOX500C2 PO; +CHOL500062 PO; +CIPR500T4 PO; +IBUP200C PO; +METR500T14 PO; +TRAM50TA2 PO
[2017-06-10 07:46] VITALS: Ht 172.7 cm; Wt 76.0 kg
--- NOTE | 2017-06-10 08:28 | ERD ---
ER Documentation Chief Complaint Date/Time DATE: 06/10/17 TIME: 08:23 Chief Complaint per Patient she seeking help for a drug rehab/ psych evaluation HPI 51-year-old female with a history of breast cancer, anxiety, irritable bowel syndrome presenting to the ER requesting admission to a detox program. She states she was here a few hours ago in the ED for diarrhea. She thought she had diverticulitis, however her CT was normal and her labs were essentially normal as well. She has been very stressed with her home situation and has been drinking daily in addition to using Ativan and Ambien. She decided to stop all of her medications and drinking about 4 days ago. Ever since then she has been very anxious and having diarrhea. She thinks that her diarrhea is due to her stress and due to her IBS. She is requesting admission to a detox facility as she does not want to take up any of her habits anymore, including her smoking. ROS All systems reviewed and are negative except as per history of present illness. Medications Home Meds Active Scripts Tramadol HCl (Tramadol HCl) 50 Mg Tablet, 50 MG PO Q6 Y for PAIN, #10 TAB Prov:JONO PHELAN MD 06/09/17 Ibuprofen* (Motrin*) 600 Mg Tab, 600 MG PO Q6, #20 TAB Prov:ADAN ARCHER MD 03/07/17 Reported Medications Metronidazole* (Metronidazole*) 500 Mg Tablet, 500 MG PO Q8, TAB TAKE 1 TABLET BY MOUTH THREE TIMES A DAY 06/09/17 Ciprofloxacin Hcl* (Ciprofloxacin Hcl*) 500 Mg Tablet, 500 MG PO BID, #14 TAB TAKE 1 TABLET BY MOUTH DAILY 06/09/17 Amoxicillin* (Amoxicillin*) 500 Mg Cap, 500 MG PO Q8, #30 CAP 06/09/17 Cholecalciferol (Vitamin D3) (Vitamin D3) 5,000 Unit Tab.rapdis, 5000 UNIT PO 06/09/17 Ibuprofen* (Ibuprofen*) 200 Mg Capsule, 200 MG PO Q6, CAP 06/09/17 Cyanocobalamin (Vitamin B-12) (B-12 Compliance) 1,000 Mcg/1 Ml Kit, 1000 MCG IJ WEEKLY, KIT 01/10/17 Ondansetron Hcl* (Zofran*) 8 Mg Tab, 8 MG PO Q6H Y for NAUSEA AND OR VOMITING, TAB 01/10/17 Zolpidem Tartrate* (Zolpidem Tartrate*) 10 Mg Tablet, 10 MG PO QHS Y for INSOMNIA, #30 TAB 01/10/17 Lorazepam* (Ativan*) 2 Mg Tablet, 2 MG PO BID Y for ANXIETY, #30 TAB 01/10/17 Tamoxifen Citrate* (Tamoxifen Citrate*) 10 Mg Tab, 10 MG PO BID, TAB 01/10/17 Allergies Allergies: Coded Allergies: Sulfa (Sulfonamide Antibiotics) (Verified Allergy, Mild, 03/07/17) adhesive tape (Verified Allergy, Unknown, RASH, 03/07/17) PMhx/Soc History of Surgery: Yes (RT MASTECTOMY 2016,RECATL SX 2YRS AGO) Anesthesia Reaction: No Hx Neurological Disorder: No Hx Respiratory Disorders: No Hx Cardiac Disorders: No Hx Psychiatric Problems: Yes (anxiety, polysubstance abuse) Hx Miscellaneous Medical Probl: Yes (diverticulosis, breast cancer) Hx Alcohol Use: No Hx Substance Use: No Hx Tobacco Use: No FmHx Family History: No diabetes Physical Exam Vitals Vital Signs Date Time Temp Pulse Resp B/P Pulse Ox O2 Delivery O2 Flow Rate FiO2 06/10/17 07:46 98.0 78 20 182/86 99 Physical Exam Const: tearful, very anxious, nontoxic Head: Atraumatic Eyes: Normal Conjunctiva ENT: Normal External Ears, Nose and Mouth. Neck: Full range of motion..~ No meningismus. Resp: Clear to auscultation bilaterally Cardio: Regular rate and rhythm, no murmurs Abd: Soft, non tender, non distended. Normal bowel sounds Skin: No petechiae or rashes Back: No midline or flank tenderness Ext: No cyanosis, or edema Neur: Awake and alert, oriented x 3, strength grossly intact Psych: Anxious, emotionally labile. Normal judgment and insight. no SI, HI, hallucinations Procedures/MDM Labs from previous visit today (06/10/17) reviewed and were notable only for mild hypokalemia, which was treated. Patient is presenting requesting detox. She does not seem to have any acute psychiatric condition requiring inpatient psychiatric hospitalization. She is hemodynamically stable. I do not think labs are needed at this time as they were just done a few hours ago. I consulted social work and they arranged for the patient to be admitted to [facility] detox facility. This would be a voluntary admission. Patient was provided with discharge paperwork and a taxi voucher. She will be going directly to [facility] detox facility. Patient was stable upon discharge. Departure Diagnosis: Primary Impression: Anxiety Additional Impressions: Polysubstance dependence History of IBS Condition: BRADY Mills MD Jun 10, 2017 08:28
[2017-06-10 09:05] VITALS: BP 155/79; PULSE 67; RESP 18
== END 2017-06-10 09:43 | disposition home or self-care (01) ==
LOC: E/R 07:43
DX: F41.9 Anxiety disorder, unspecified (principal); R40.2252 Coma scale, best verbal response, oriented, at arrival to emergency department; F15.20 Other stimulant dependence, uncomplicated; F13.20 Sedative, hypnotic or anxiolytic dependence, uncomplicated; R40.2142 Coma scale, eyes open, spontaneous, at arrival to emergency department; R40.2362 Coma scale, best motor response, obeys commands, at arrival to emergency department; Z85.3 Personal history of malignant neoplasm of breast
CPT/HCPCS: 99282